=== PATIENT | female | born 1955 | race Caucasian/White ===

== ENCOUNTER 2016-04-04 09:54 | Day surgery (SDC) | payer OTHER, MEDICARE ==
[2016-04-01 15:24] VITALS: BMI 27.4
[~2016-04-04 09:54] MED LIST: LACTATED RINGERS 1,000 ML IV SCH; LIDOCAINE 1% 20 ML VIAL (10MG/ML) FOR IV START INTRADERMA PRN
[2016-04-04 10:10] VITALS: RESP 16; TEMP 97.2
[2016-04-04] MEDS ORDERED: LIDOCAINE 1% INJ 10MG/ML (20 ML MDV) ONE (10:28)
[2016-04-04] MEDS ORDERED: PROPOFOL 10 MG/ML 20 ML VIAL IV ONE (10:28)
--- NOTE | 2016-04-04 10:52 | P.PCN ---
Date of Procedure: 04/04/16 Procedure(s) Performed: Procedure: Total colonoscopy. Preoperative diagnosis: Screening for neoplasia, patient may be having surgery for rectal/bladder prolapse. Postoperative diagnosis: Diverticulosis with no obvious diverticulitis or neoplasia. Preparation: HalfLytely prep. Sedation: Was provided by anesthesia. Brief clinical history: The patient is a 60-year-old female who is referred for this evaluation to rule out neoplasia. She is being evaluated for possible surgical intervention for rectal/bladder prolapse. Procedure: With the patient on her left lateral decubitus position and after informed consent and adequate sedation, the perianal area was inspected and it did not show any fissures or fistulas. There were no masses felt on digital rectal examination. The Olympus CFQ 160L video colonoscope was then inserted in the rectum in the usual fashion and advanced to the cecum. There were multiple diverticular orifices seen scattered both on the left side and right side although there were more evident on the sigmoid. There was no evidence of acute diverticulitis or strictures. No polyps or tumors were seen. The mucosa appeared healthy. I retroflexed endoscope in the rectum before the endoscope was withdrawn. Low-grade internal hemorrhoids were noted but that did not note any bleeding or other obvious pathology. The patient tolerated the procedure well. Plan: The patient was reassured. Discussed dietary measures. She will follow- up with you as planned and further plans based on her course.
[2016-04-04 11:05] VITALS: BP 101/59; PULSE 77
== END 2016-04-04 11:24 | disposition home or self-care (01) ==
LOC: ORWHC2ENDO 09:54
DX: Z12.11 Encounter for screening for malignant neoplasm of colon (principal); K57.30 Diverticulosis of large intestine without perforation or abscess without bleeding; K64.8 Other hemorrhoids; F39 Unspecified mood [affective] disorder; Z79.899 Other long term (current) drug therapy
CPT/HCPCS: J2001; J2704; G0121; 99153

== ENCOUNTER → 2016-07-29 | Outpatient (CLI) | payer OTHER, MEDICARE ==
--- NOTE | 2016-07-31 06:46 | MM ---
Reason for exam: screening (asymptomatic). Last mammogram was performed 7 months ago. Physical Findings: A clinical breast exam by your physician is recommended on an annual basis and results should be correlated with mammographic findings. MG Screening Mammo w CAD Bilateral CC and MLO view(s) were taken. Prior study comparison: December 20, 2015, left breast MG 3d diag mammo w/cad LT. June 02, 2015, bilateral MG 3d diag mammo w/cad ERIN. There are scattered fibroglandular densities. No significant changes when compared with prior studies. ASSESSMENT: Benign, BI-RAD 2 RECOMMENDATION: Routine screening mammogram of both breasts in 1 year.
== END ==
LOC: RADMAMWWP 16:13
PROVIDERS: ATTEND Internal Medicine
DX: Z12.31 Encounter for screening mammogram for malignant neoplasm of breast (principal)

== ENCOUNTER 2016-09-24 13:31 | Observation (INO) | payer OTHER, MEDICARE ==
[2016-09-24] MEDS ORDERED: SODIUM CHLORIDE 0.9% 1,000 ML IV ONE ×2 (14:08→15:28)
--- NOTE | 2016-09-24 14:22 | ED ---
General Adult HPI - General Chief complaint: Dizziness Stated complaint: Fall. Dizziness Time Seen by Provider: 09/24/16 13:48 Source: patient Mode of arrival: ambulatory Limitations: no limitations - History of Present Illness Initial comments: Debbie is a 60-year-old female with past medical history most significant for chronic migraines for which she had an occipital nerve stimulator placed by a neurosurgeon some years ago. Debbie reports over the past couple of months she is developed a head twitching motion, and for the past 2 weeks is been having balance problems. Debbie reports that she saw her neurosurgeon 2 weeks ago and her nerve stimulator was thoroughly investigated, it was determined at that time that there was no malfunction of the stimulator. Patient reports that since that time she has had 2 falls. The first being approximately 9 days ago which she was getting onto her boat and fell forward striking her chin on the ground. Patient reports that she was alone and so she placed an ice pack on her chin and laid down for some time. She denies any loss of consciousness at that time. She believes this was a mechanical trip and fall. Patient reports that since that time she is progressively felt more unsteady on her feet. She reports feeling lightheaded and if she is moving at all times. She says the lightheadedness is worse upon standing and improves when she is laying down. Patient states that even when she is laying down occasionally she does feel as though her body is moving. She doesn't feel that the symptoms are exacerbated by head movement left or right. She does not feel as though the room is spinning around her. She has no history of vertigo. patient also reports that she was woke up during the middle of night with a new headache. She reports that she previously had severe migraines but has not experienced this in a number of years since having her simulator placed. She describes the headache as pressure-like in the occipital region of her head. She reports that this is similar to her previous migraines, however is the first headache she has had since having her stimulator placed. She has not identified any exacerbating or relieving factors for the migraine. She denies any vision change, ringing in ears, hearing loss. This is not the worse headache she has ever experienced. The headache was not most intense onset, it has continued to worsen throughout the day. Patient does state that she's been suffering from nausea for nearly a week and because of that has had decreased oral intake. patient denies any fevers, chills, vomiting, shortness of breath, chest pain or change in bowel or bladder habits. - Related Data Home Medications Medication Instructions Recorded Confirmed DULoxetine HCL [Cymbalta] 60 mg PO DAILY 04/01/16 09/24/16 Docusate [Colace] 100 - 200 mg PO DAILY PRN 04/01/16 09/24/16 L.acidoph,Paracasei, B.lactis 1 tab PO DAILY 04/01/16 09/24/16 [Probiotic] Multivitamins, Thera [Multivitamin] 1 tab PO DAILY 04/01/16 09/24/16 Folic Acid 0.4 mg PO DAILY 09/24/16 09/24/16 Magnesium Oxide [Mag-Ox] 250 mg PO DAILY 09/24/16 09/24/16 Turmeric Root Extract [Turmeric] 500 mg PO DAILY 09/24/16 09/24/16 Allergies Allergy/AdvReac Type Severity Reaction Status Date / Time No Known Allergies Allergy Verified 09/24/16 14:38 Review of Systems ROS Statement: Those systems with pertinent positive or pertinent negative responses have been documented in the HPI. ROS Other: All systems not noted in ROS Statement are negative. Constitutional: Denies: fever, chills, weakness Eyes: Denies: vision change ENT: Denies: hearing loss Respiratory: Denies: dyspnea Cardiovascular: Denies: chest pain, palpitations, dyspnea on exertion Endocrine: Denies: fatigue Gastrointestinal: Reports: nausea. Denies: abdominal pain, vomiting, diarrhea, constipation Genitourinary: Denies: urgency, dysuria, frequency Musculoskeletal: Denies: back pain Skin: Reports: change in color (Bruises on bilateral arms, chin and left hip secondary to multiple falls). Denies: rash Neurological: Reports: headache, paresthesias (Bilateral upper extremities for 2 weeks duration), abnormal gait. Denies: confusion Psychiatric: Denies: anxiety Hematological/Lymphatic: Denies: easy bleeding, easy bruising Past Medical History Past Medical History: Osteoarthritis (OA) Additional Past Medical History / Comment(s): RECTAL PROLAPSE, HX MIGRAINE, cervicogenic headache, celiacs disease History of Any Multi-Drug Resistant Organisms: None Reported Past Surgical History: Hysterectomy, Tubal Ligation Additional Past Surgical History / Comment(s): OCCIPITAL STUMULATOR IMPLANT, ( BATTERY PACK IS IN LEFT POSTERIOR HIP) colonoscopy, ERIN CATARACT SX Past Anesthesia/Blood Transfusion Reactions: No Reported Reaction Past Psychological History: No Psychological Hx Reported Smoking Status: Never smoker Past Alcohol Use History: Occasional Past Drug Use History: None Reported - Past Family History Mother Family Medical History: Deep Vein Thrombosis (DVT) Brother(s) Family Medical History: Cancer Sister(s) Family Medical History: Cancer General Exam Limitations: no limitations General appearance: alert, in no apparent distress Head exam: Present: normocephalic, other (Well-healed bruising on her chin) Eye exam: Present: PERRL ENT exam: Present: mucous membranes dry Neck exam: Present: full ROM. Absent: tenderness, lymphadenopathy Respiratory exam: Present: normal lung sounds bilaterally Cardiovascular Exam: Present: regular rate, normal rhythm, normal heart sounds GI/Abdominal exam: Present: soft, normal bowel sounds. Absent: distended, tenderness, guarding, rebound, rigid Rectal exam: Present: deferred Extremities exam: Present: normal inspection, full ROM, normal capillary refill. Absent: tenderness, pedal edema, joint swelling, calf tenderness Neurological exam: Present: alert, oriented X3, CN II-XII intact Expanded Neurological exam: Present: protecting the airway. Absent: inattentive, memory loss-remote event, memory loss-recent event, receptive aphasia, expressive aphasia, total aphasia Patient oriented to: Present: person, place, time Speech: Present: fluid speech Cranial nerves: EOM's Intact: Normal, Tongue Deviation: Normal, Nystagmus: Normal Cerebellar function: Finger to Nose: Normal, Heel to Mckeon: Normal Upper motor neuron: Pronator Drift: Normal Motor strength exam: RUE: 4, LUE: 4, RLE: 4, LLE: 4 Eye Response: (4) open spontaneously Motor Response: (6) obeys commands Verbal Response: (5) oriented Psychiatric exam: Present: normal affect, normal mood Skin exam: Present: warm, dry Course Vital Signs 09/24/16 09/24/16 13:39 15:37 Temperature 98.6 F Pulse Rate 74 60 Respiratory 20 16 Rate Blood Pressure 124/80 147/67 O2 Sat by Pulse 97 98 Oximetry - Reevaluation(s) Reevaluation #1: Reevaluated after 1 L fluid bolus. Patient reports that upon sitting from a laying position she developed a spinning sensation. Additional 1 L fluid bolus and meclizine were ordered. CT results were discussed with patient and family at bedside 09/24/16 15:29 Medical Decision Making - Medical Decision Making Patient was seen and examined, history is obtained from the patient and HER-2 daughters at bedside Patient appears to have a component of orthostatic hypotension with resulting lightheadedness. However there is concerned that she has had change in gait and some gait instability over the past 2 weeks in addition the patient has developed motor tic of her neck and head over the past 2 months for which she's been followed by neurosurgery without any definitive diagnosis. Labs, CT of the head and neck, EKG were ordered Patient appears dehydrated on physical exam, 1 L normal saline bolus was ordered Patient does not seem to have any component of vertigo, her symptoms are not exacerbated by turning the head left and right, she has no nystagmus. He don't feel at this time the meclizine would be of benefit. Patient reevaluated after 1 L fluid bolus, reports that she feels a spinning sensation upon sitting up. Meclizine an additional 1 L fluid bolus ordered Patient reevaluated after second liter bolus, no improvement in symptoms. Patient's daughter's assisted her ambulating to the restroom and patient reports she still felt very lightheaded and spinning. She did not feel steady on her feet and required a 2 person assist. Urgent care discussed with Dr. Hicks who accepts the patient admission for ataxia he requests a consult to neurology - Lab Data Result diagrams: 09/24/16 14:23 09/24/16 14:23 Lab Results 09/24/16 09/24/16 09/24/16 Range/Units 14:23 14:23 14:23 WBC 8.7 (3.8-10.6) k/uL RBC 4.55 (3.80-5.40) m/uL Hgb 14.4 (11.4-16.0) gm/dL Hct 41.4 (34.0-46.0) % MCV 90.9 (80.0-100.0) fL MCH 31.6 (25.0-35.0) pg MCHC 34.7 (31.0-37.0) g/dL RDW 14.1 (11.5-15.5) % Plt Count 316 (150-450) k/uL Neutrophils % 73 % Lymphocytes % 20 % Monocytes % 4 % Eosinophils % 2 % Basophils % 1 % Neutrophils # 6.3 (1.3-7.7) k/uL Lymphocytes # 1.7 (1.0-4.8) k/uL Monocytes # 0.3 (0-1.0) k/uL Eosinophils # 0.2 (0-0.7) k/uL Basophils # 0.1 (0-0.2) k/uL PT 10.1 (9.0-12.0) sec INR 1.0 (<1.1) APTT 23.5 (22.0-30.0) sec Sodium 139 (137-145) mmol/L Potassium 4.5 (3.5-5.1) mmol/L Chloride 105 (98-107) mmol/L Carbon Dioxide 26 (22-30) mmol/L Anion Gap 8 mmol/L BUN 22 H (7-17) mg/dL Creatinine 0.67 (0.52-1.04) mg/dL Est GFR (MDRD) Af Amer >60 (>60 ml/min/1.73 sqM) Est GFR (MDRD) Non-Af >60 (>60 ml/min/1.73 sqM) Glucose 94 (74-99) mg/dL Calcium 9.8 (8.4-10.2) mg/dL Disposition Clinical Impression: Ataxia Disposition: ADMITTED IP TO THIS [facility] Referrals: Francisca Hancock MD [Primary Care Provider] - 1-2 days
[2016-09-24 14:42] LABS: Basophils # (A) 0.1 k/uL (0-0.2); Basophils % (A) 1 %; CH 30.6; CHCM 33.8; Eosinophils # (A) 0.2 k/uL (0-0.7); Eosinophils % (A) 2 %; HCT 41.4 % (34.0-46.0); HDW 2.35; HGB 14.4 gm/dL (11.4-16.0); Luc # (Auto) 0.16; Luc % (Auto) 2; Lymphocytes # (A) 1.7 k/uL (1.0-4.8); Lymphocytes % (A) 20 %; MCH 31.6 pg (25.0-35.0); MCHC 34.7 g/dL (31.0-37.0); MCV 90.9 fL (80.0-100.0); Mean Platelet Volume 7.5; Monocytes # (A) 0.3 k/uL (0-1.0); Monocytes % (A) 4 %; Neutrophils # (A) 6.3 k/uL (1.3-7.7); Neutrophils % (A) 73 %; RBC 4.55 m/uL (3.80-5.40); RDW 14.1 % (11.5-15.5); WBC 8.7 k/uL (3.8-10.6); WBC (Perox) 8.04
[2016-09-24 14:52] LABS: Anion Gap 8 mmol/L; Blood Urea Nitrogen 22 mg/dL (7-17); Calcium 9.8 mg/dL (8.4-10.2); Carbon Dioxide 26 mmol/L (22-30); Chloride 105 mmol/L (98-107); Glucose 94 mg/dL (74-99); Non-African American GFR(MDRD) >60 (>60 ml/min/1.73 sqM); Potassium 4.5 mmol/L (3.5-5.1); Sodium 139 mmol/L (137-145)
--- NOTE | 2016-09-24 15:17 | CT ---
EXAMINATION TYPE: CT brain slava wo con DATE OF EXAM: 09/24/2016 COMPARISON: Prior CT brain 09/29/2014 HISTORY: Dizziness with fall injuries. CT DLP: 1339.7 mGycm Automated exposure control for dose reduction was used. TECHNIQUE: CT scan of the head and cervical spine are performed without contrast. FINDINGS: There is no acute intracranial hemorrhage, mass effect, or midline shift identified. The ventricles and sulci are within normal limits in size. Interval introduction of posterior leads at t he skull base on the left and right causes some streak artifact. The globes are intact and the visual ized sinuses are clear. Cervical spine is visualized in its entirety from C1 through upper thoracic levels and demonstrates s atisfactory alignment without evidence of acute fracture or dislocation. Prevertebral soft tissue ap pears within normal limits. Multilevel facet arthropathy changes are present. Spondylosis is present most notably at C5-6 with associated loss of disc height, minimal anterolisthesis grade 1 C4-5. Fora alf encroachment present at C5-6 bilaterally left greater than right and also C4-5, on the left at C3-4 The C1-C2 articulation is unremarkable. IMPRESSION: 1. There is no acute fracture or dislocation evident in the cervical spine. Degenerative disc disease , multilevel foraminal encroachment. 2. No acute intracranial hemorrhage, mass effect, or midline shift is seen.
[2016-09-24] MEDS ORDERED: MECLIZINE 12.5 MG TAB PO STA (15:28)
[2016-09-24 15:36] LABS: Partial Thromboplastin Time 23.5 sec (22.0-30.0); Prothrombin Time 10.1 sec (9.0-12.0)
[2016-09-24] MEDS ORDERED: ONDANSETRON 4 MG/2 ML VIAL IVP STA (15:46)
[2016-09-24] MEDS ORDERED: NALOXONE 0.4 MG/ML 1 ML VIAL IV PRN (16:34)
[2016-09-24] MEDS ORDERED: ACETAMINOPHEN TAB 500 MG TAB PO PRN (19:06)
[2016-09-24] MEDS ORDERED: DOCUSATE 100 MG CAP PO PRN (19:55)
[2016-09-24] MEDS: NAPROXEN 250 MG TAB PO SCH (21:31)
[2016-09-24] MEDS: MELATONIN 3 MG TABLET PO SCH (21:33)
[2016-09-25] MEDS: NAPROXEN 250 MG TAB PO SCH ×2 (04:41→21:00)
[2016-09-25] MEDS: FOLIC ACID 1 MG TAB PO SCH (08:55)
[2016-09-25] MEDS: DULoxetine HCL 60 MG CAPSULE.DR PO SCH (08:55)
[2016-09-25] MEDS: MAGNESIUM OXIDE 400 MG TAB PO SCH (08:56)
[2016-09-25] MEDS: LACTOBACILLUS ACIDOPH & BULGAR 1 EACH PACKET PO SCH (08:56)
[2016-09-25] MEDS ORDERED: ONDANSETRON 4 MG/2 ML VIAL IVP PRN (13:00)
--- NOTE | 2016-09-25 13:16 | CONS ---
DATE OF CONSULTATION: 09/24/2016 CHIEF COMPLAINT: Dizziness. HISTORY OF PRESENT ILLNESS: The patient is a pleasant 60-year-old female who is being evaluated by the neurology service per the request of Dr. Hicks for dizziness. The patient states that over the past several days, she has been feeling dizzy and she describes the dizziness as a light-headed sensation and also has feeling of motion. She denies any spinning sensation. She does report ringing in her ears, but this has been present for approximately 8 years. She denies any current hearing loss, but states that she has a strong family history of tinnitus and hearing loss. She does report a recent injury approximately 9 days ago. She states that she was getting on her boat and lost balance and fell forward hitting her chin on the boat. She still has some superficial abrasions on her left chin area from that fall. She did not have any loss of consciousness. Regarding her disequilibrium and dizziness, she states that this comes and goes. She is complaining of a headache , but she has a history of chronic migraines. She does have peripheral nerve stimulator implantation in the posterior head region, which was implanted last year. She reports that this was recently evaluated and was found to be functioning properly. She rates her headache at this time at 5 out of [address] scan of the brain was done, which showed no acute intracranial abnormalities. Her CBC and basic metabolic profile were normal. Orthostatics were done when she arrived to the observation unit and it showed on orthostatic hypotension, but she did have mild bradycardia at one point with a pulse of 56 beats per minute. PAST MEDICAL HISTORY: Chronic migraines, arthritis, history of tubal ligation, hysterectomy, peripheral nerve stimulator implantation, cataract surgeries. FAMILY HISTORY: Positive for cancer, deep venous thrombosis and hearing loss. SOCIAL HISTORY: She occasionally drinks alcohol. She denies any tobacco or drug use. REVIEW OF SYSTEMS: CONSTITUTIONAL: Negative. EYES: Negative. ENT: As mentioned above. CARDIOVASCULAR: Negative. RESPIRATORY: Negative. NEUROLOGICAL: As mentioned above. She denies any lateralizing numbness or weakness. GASTROINTESTINAL: Negative. GENITOURINARY: Negative. MUSCULOSKELETAL: Negative. DERMATOLOGICAL: Negative. ENDOCRINE: Negative. PSYCHIATRIC: Negative. PHYSICAL EXAM : Vital signs show a temperature of 97.7, pulse 64, respirations 14, blood pressure 132/71. GENERAL APPEARANCE: The patient is a well-developed, female who appears to be in no acute acute distress. HEENT: Healing superficial abrasions are seen in the left chin area. Extraocular muscles are intact. No nystagmus is noticed. No facial asymmetry is seen. Neck is supple with no masses felt. CARDIOVASCULAR: Regular rate and rhythm. ABDOMEN: Nontender, nondistended. Extremities showed no edema or clubbing. NEUROLOGICAL EXAM: The patient is alert, awake and oriented x3. Speech and language are normal. Strength is full in all 4 extremities. Sensory exam was normal to light touch in all 4 extremities. No facial asymmetry is noticed on cranial nerve testing. No pronator drift is seen. No tremors are noticed. Mbroqj-okgo-opgfel testing showed no dysmetria. IMPRESSION: 1. Recurrent dizziness. 2. Recurrent gait instability. 3. Recent fall. 4. Chronic headache. RECOMMENDATION: The patient continues to have recurrent episode of disequilibrium and dizziness. She does have some light-headed sensation along with some motion sensation without any true vertigo or nausea. She does complain of chronic tinnitus. Given this and given her extensive family history of tinnitus and hearing loss, I will consult ENT for further evaluation. I also recommend a cardiac evaluation to check for evidence of dysautonomia. She may benefit from having further workup like a tilt table test. An EEG has been ordered. I did review her CT scan to the brain, which showed no acute intracranial abnormalities. Her cerebellar function test was normal and I doubt any ischemic etiology for her symptoms. Continue neuro checks. I will continue to follow with you. Further recommendations to follow. Thank you for allowing me to participate in the care of your patient. If you have any questions, please feel free to contact me. JORDYN
[2016-09-25] MEDS: HYDROcodone/APAP 5-325MG 1 EACH TAB PO PRN (13:59)
[2016-09-25] MEDS: MULTIVITAMINS, THERA 1 EACH TAB PO SCH (14:58)
--- NOTE | 2016-09-25 15:55 | P.HPIM ---
History of Present Illness 60-year-old female is admitted for fall. I did get extensive history from the patient. Patient to have 3 mechanical falls from extensive history. But daughter is still concerned that patient is not providing appropriate history. Although patient did not have any syncopal episode was complaining of lightheadedness denied in no vertiginous symptoms. Patient EKG is essentially within normal limits. HEENT had a CT of the head and neck does have history of chronic migraines and does have a occipital nerve stimulator. Patient lightheadedness proved today. She was referred to neurology. Patient denied any weakness and patient does not have any weakness on your exam doesn't have any sensory deficits. Patient denied any fever, chills or dysuria, nausea, vomiting, diarrhea. Patient's family is concerned about her memory difficulties for which she I'm opting Mini-Mental Status exam. Dr. Rivera from cardiology recommended tilt table testing, patient is awaiting this testing. Telemetry normal. Review of Systems REVIEW OF SYSTEMS: CONSTITUTIONAL: No fever, no malaise, no fatigue. HEENT: No recent visual problems or hearing problems. Denied any sore throat. CARDIOVASCULAR: No chest pain, orthopnea, PND, no palpitations, no syncope. PULMONARY: No shortness of breath, no cough, no hemoptysis. GASTROINTESTINAL: No diarrhea, no nausea, no vomiting, no abdominal pain. Normoactive bowel sounds. NEUROLOGICAL: No headaches, no weakness, no numbness. HEMATOLOGICAL: Denies any bleeding or petechiae. GENITOURINARY: Denies any burning micturition, frequency, or urgency. MUSCULOSKELETAL/RHEUMATOLOGICAL: Denies any joint pain, swelling, or any muscle pain. ENDOCRINE: Denies any polyuria or polydipsia. The rest of the 14-point review of systems is negative. Past Medical History Past Medical History: Osteoarthritis (OA) Additional Past Medical History / Comment(s): RECTAL PROLAPSE, HX MIGRAINE, cervicogenic headache, celiacs disease(gluten free diet), "ddd upper spine"oa spine.diverticulosis. 2 falls in past 10 days.in june was at [facility] for c/p-stress test neg History of Any Multi-Drug Resistant Organisms: None Reported Past Surgical History: Hysterectomy, Tubal Ligation Additional Past Surgical History / Comment(s): OCCIPITAL STUMULATOR IMPLANT, ( BATTERY PACK IS IN LEFT POSTERIOR HIP) colonoscopy, ERIN CATARACT SX Past Anesthesia/Blood Transfusion Reactions: No Reported Reaction Smoking Status: Never smoker - Past Family History Mother Family Medical History: Deep Vein Thrombosis (DVT) Brother(s) Family Medical History: Cancer Sister(s) Family Medical History: Cancer Medications and Allergies Home Medications Medication Instructions Recorded Confirmed Type DULoxetine HCL [Cymbalta] 60 mg PO DAILY 04/01/16 09/24/16 History Docusate [Colace] 100 - 200 mg PO DAILY PRN 04/01/16 09/24/16 History L.acidoph,Paracasei, B.lactis 1 tab PO DAILY 04/01/16 09/24/16 History [Probiotic] Multivitamins, Thera [Multivitamin] 1 tab PO DAILY 04/01/16 09/24/16 History Folic Acid 0.4 mg PO DAILY 09/24/16 09/24/16 History Magnesium Oxide [Mag-Ox] 250 mg PO DAILY 09/24/16 09/24/16 History Turmeric Root Extract [Turmeric] 500 mg PO DAILY 09/24/16 09/24/16 History Allergies Allergy/AdvReac Type Severity Reaction Status Date / Time No Known Allergies Allergy Verified 09/24/16 14:38 Physical Exam Vitals: Vital Signs Temp Pulse Pulse Pulse Pulse Pulse Resp 09/25/16 11:33 97.8 F 70 17 09/25/16 07:43 97.7 F 69 17 09/25/16 04:00 97.9 F 75 18 09/25/16 03:36 18 09/25/16 00:00 68 18 09/24/16 23:31 97.9 F 68 18 09/24/16 20:00 80 18 09/24/16 19:27 97.9 F 80 18 09/24/16 17:31 97.7 F 64 14 09/24/16 17:10 97.0 F L 56 L 16 09/24/16 17:04 97.2 F L 16 09/24/16 17:01 63 69 63 BP BP BP BP BP Pulse Ox 09/25/16 11:33 119/66 95 09/25/16 07:43 117/51 96 09/25/16 04:00 118/71 97 09/25/16 03:36 09/25/16 00:00 09/24/16 23:31 106/63 96 09/24/16 20:00 09/24/16 19:27 129/76 98 09/24/16 17:31 132/71 97 09/24/16 17:10 152/87 97 09/24/16 17:04 09/24/16 17:01 154/82 152/87 144/70 Intake and Output 09/25/16 09/25/16 09/25/16 06:59 14:59 22:59 Intake Total 250 440 Balance 250 440 Intake: Oral 250 440 Other: Voiding Method Toilet # Voids 2 PHYSICAL EXAMINATION: GENERAL: The patient is alert and oriented x3, not in any acute distress. Well developed, well nourished. HEENT: Pupils are round and equally reacting to light. EOMI. No scleral icterus. No conjunctival pallor. Normocephalic, atraumatic. No pharyngeal erythema. No thyromegaly. CARDIOVASCULAR: S1 and S2 present. No murmurs, rubs, or gallops. PULMONARY: Chest is clear to auscultation, no wheezing or crackles. ABDOMEN: Soft, nontender, nondistended, normoactive bowel sounds. No palpable organomegaly. MUSCULOSKELETAL: No joint swelling or deformity. EXTREMITIES: No cyanosis, clubbing, or pedal edema. NEUROLOGICAL: Gross neurological examination did not reveal any focal deficits. SKIN: No rashes. Results CBC & Chem 7: 09/24/16 14:23 09/24/16 14:23 Thrombosis Risk Factor Assmnt - Choose All That Apply Any of the Below Risk Factors Present?: Yes Each Factor Represents 1 point: Obesity (BMI >25) Other Risk Factors: Yes Each Risk Factor Represents 2 Points: Age 61-74 years Each Risk Factor Represents 3 Points: Family history of DVT/PE Other congenital or acquired thrombophilia - If yes, enter type in comment: No Thrombosis Risk Factor Assessment Total Risk Factor Score: 6 Thrombosis Risk Factor Assessment Level: High Risk Assessment and Plan Plan: #1 fall: It appears to be mechanical fall and related to her memory difficulties. Will do Mini-Mental status exam patient's as have significant family history of falls and Alzheimer dementia. Evaluated the patient 2 dizziness: Probably related to mild dehydration patient received IV fluids. Patient is going for tilt table testing although my suspicion is significantly low for autonomic dysfunction. #3 chronic degenerative cervical disc disease for which patient has occipital nerve stimulator. Patient is nonsteroidal anti-inflammatory medications for pain. She is requesting Glenvil #4 migraine: Management as per neurology
[2016-09-25] MEDS ORDERED: CALCIUM CARBONATE 500 MG CHEWABLE PO PRN (16:23)
[2016-09-25] MEDS: MELATONIN 3 MG TABLET PO SCH (20:08)
[2016-09-25] MEDS: MECLIZINE 12.5 MG TAB PO SCH (20:09)
--- NOTE | 2016-09-25 21:34 | P.PN ---
Subjective Principal diagnosis: Dizziness Patient is a 60-year-old female being followed by neurology for dizziness. Patient describes dizziness as lightheaded and also feeling of motion. Denies any spinning sensation, does report ringing in her ears but this is present for approximately 8 years. Denies any current hearing loss but states that she has a strong family history of tinnitus and hearing loss. Does report a recent injury approximately 9 days ago. Patient had a fall while attempting to enter a boat, lost her balance and hit her chin on the boat. Patient does have some superficial facial abrasions in various stages of healing. Patient did not have any loss of consciousness. Disequilibrium and dizziness wax and wane at varying intervals. Patient was complaining of a headache and has a history of chronic migraine. Patient does have a peripheral nerve stimulator implantation in the posterior head which was implanted last year by another provider/group. Stimulator was recently interrogated per the patient and was found to be functioning properly. Patient rates the pain at a 5 out of [address] of the brain was done which noted no acute intracranial abnormalities. CBC, BMP were normal. Orthostatics were completed on arrival and during observation in the unit which showed no orthostatic hypotension but noted mild bradycardia at one point with a pulse of 56 bpm. On contact, the patient was supine in bed with family at the bedside. Patient was alert and oriented 3, no acute distress. Objective - Vital Signs Vital signs: Vital Signs Temp 97.5 F L 09/25/16 21:15 Pulse 83 09/25/16 21:15 Resp 16 09/25/16 21:15 BP 132/65 09/25/16 21:15 Pulse Ox 95 09/25/16 21:15 Intake & Output 09/25/16 09/25/16 09/26/16 06:59 18:59 06:59 Intake Total 450 440 Balance 450 440 Weight 79.7 kg Intake: Oral 450 440 Other: Voiding Method Toilet Toilet # Voids 2 2 - Exam Constitutional: AOx3, cooperative HEENT: NC/AT, no facial asymmetry is seen. Throat: Supple, no masses Respiratory: No increased work of breathing Cardiac: Regular rate and Rhythm GI: non tender, non distended Musculoskeletal: Sport Psychologist strengths are equal bilaterally 5/5, Lower extremity strengths are equal bilaterally at 5/5. Neurological: CN II-XII in tact, patient was AOx3, speech and language are normal, no unilateralizing weakness, no seizure activity note on physical exam. Sensation was normal. Integementary: no rash, no erythema Psychiatric: mood and affect appropriate - Labs CBC & Chem 7: 09/24/16 14:23 09/24/16 14:23 Assessment and Plan (1) Dizziness Status: Acute (2) History of fall within past 90 days Status: Acute (3) Chronic headaches Status: Acute (4) Ataxia Status: Acute (5) Memory loss Status: Acute Plan: Patient continues to have recurrent episodes of disequilibrium and dizziness. Patient also has some intermittent lightheaded sensation with vertigo/motion sensation without any true vertigo or hearing loss. ENT has been consult in and states they will evaluate the patient outpatient. Cardiology is actively on the case. Tilt table has been ordered to cardiology. EEG has been taken but not read. CT of the brain noted no acute intracranial abnormalities. Cerebellar function testing was normal. Ischemic etiology is doubtful at this point. Nursing did report that the patient did respond positively to Antivert 25 mg given within the last 24 hours. Medication lasted approximately 16 hours. I am going to prescribe Antivert 12.5 mg, 1 tab, by mouth twice a day to attempt to decrease the patient's motion/vertigo-like complaints. Medication can be continued outpatient as well. As relates to the patient's memory loss/memory difficulties, further diagnostic workup can be conducted outpatient. Status: Patient is cleared for discharge from a neurological standpoint. Patient to follow up in our office within 14 days I discussed the patient's pertinent medical information with Dr. Bruce. He agrees with the plan of care as implemented.
--- NOTE | 2016-09-26 07:28 | EEG ---
DATE OF SERVICE: 09/25/2016 REASON FOR TESTING: Dizziness. DESCRIPTION OF THE PROCEDURE: This EEG was performed using a 21 channel digital electroencephalograph following international 10 - 20 system. DESCRIPTION OF THE RECORDING: From the beginning of the tracing, and with the patient's eyes closed, the background rhythm was mostly consisting of 9 to 10 Hz alpha frequency in the posterior occipital leads. No obvious asymmetry is seen. Photic stimulation was performed with a good driving response seen. No pathological waves were elicited. Hyperventilation was not performed. The patient remains awake throughout the tracing. Rare movement artifacts are seen. No epileptiform discharges were noticed. Her EKG leads showed a regular rate and rhythm. INTERPRETATION: This awake EEG can be considered within normal limits. There was no asymmetry seen. No epileptiform discharges were noticed. The absence of epileptiform discharges does not rule out the diagnosis of epilepsy, therefore, clinical correlation is recommended. MTDD
--- NOTE | 2016-09-26 10:48 | ECHOF ---
Referral Reason:dizziness MEASUREMENTS -------- HEIGHT: 165.1 cm WEIGHT: 79.4 kg BP: 119/66 RVIDd: 3.3 cm (< 3.3) IVSd: 0.9 cm (0.6 - 1.1) LVIDd: 4.6 cm (3.9 - 5.3) LVPWd: 1.0 cm (0.6 - 1.1) IVSs: 1.4 cm LVIDs: 3.3 cm LVPWs: 1.4 cm LA Diam: 3.7 cm (2.7 - 3.8) LAESV Index (A-L): 17.83 ml/m Ao Diam: 2.9 cm (2.0 - 3.7) AV Cusp: 2.2 cm (1.5 - 2.6) MV EXCURSION: 19.132 mm (> 18.000) MV EF SLOPE: 136 mm/s (70 - 150) EPSS: 0.6 cm MV E Eric: 0.79 m/s MV DecT: 179 ms MV A Eric: 0.74 m/s MV E/A Ratio: 1.07 FINDINGS -------- Sinus rhythm. This was a technically good study. The left ventricular size is normal. Left ventricular wall thickness is normal. Overall left ventricular systolic function is normal with, an EF between 55 - 60 %. The right ventricle is normal in size. Normal LA size by volume 22+/-6 ml/m2. The right atrium is normal in size. The aortic valve is trileaflet and appears structurally normal. The mitral valve is normal. There is trace mitral regurgitation. The tricuspid valve appears structurally normal. There is no pulmonic regurgitation present. The aortic root size is normal. Normal inferior vena cava with normal inspiratory collapse consistent with estimated right atrial pressure of 5 mmHg. There is no pericardial effusion. CONCLUSIONS -------- 1. Sinus rhythm. 2. There is no pulmonic regurgitation present. 3. The aortic root size is normal. 4. Normal inferior vena cava with normal inspiratory collapse consistent with estimated right atrial pressure of 5 mmHg. 5. There is no pericardial effusion. 6. This was a technically good study. 7. Left ventricular wall thickness is normal. 8. Overall left ventricular systolic function is normal with, an EF between 55 - 60 %. 9. Normal LA size by volume 22+/-6 ml/m2. 10. The aortic valve is trileaflet and appears structurally normal. 11. The mitral valve is normal. 12. There is trace mitral regurgitation. 13. The tricuspid valve appears structurally normal. EDI SPECIALIST: Milka Barrios RDCS
[2016-09-26] MEDS ORDERED: DIAZEPAM 5 MG TAB PO PRN (11:51)
[2016-09-26] MEDS ORDERED: SODIUM CHLORIDE 0.9% 500 ML IV ONE (13:02)
[2016-09-26] MEDS: LACTOBACILLUS ACIDOPH & BULGAR 1 EACH PACKET PO SCH (14:55)
[2016-09-26] MEDS: DULoxetine HCL 60 MG CAPSULE.DR PO SCH (14:55)
[2016-09-26] MEDS: MAGNESIUM OXIDE 400 MG TAB PO SCH (14:55)
[2016-09-26] MEDS: MECLIZINE 12.5 MG TAB PO SCH ×2 (14:55→20:36)
[2016-09-26] MEDS: MULTIVITAMINS, THERA 1 EACH TAB PO SCH (14:55)
[2016-09-26] MEDS: HYDROcodone/APAP 5-325MG 1 EACH TAB PO PRN ×2 (14:56→19:08)
[2016-09-26] MEDS: FOLIC ACID 1 MG TAB PO SCH (14:56)
[2016-09-26] MEDS: NAPROXEN 250 MG TAB PO SCH ×2 (15:17→20:35)
--- NOTE | 2016-09-26 15:46 | P.PCN ---
Preoperative Diagnosis: Twelve-lead ECG was reviewed and shows sinus rhythm normal CA narrow QRS normal QT interval Tilt table test Baseline blood pressure 128/66. His Baseline heart rate 68 beats a minute Patient was tilted upright at an angle of 70 per protocol Normal heart rate and blood pressure response to upright tilting without any symptoms Impression No evidence for syncope No evidence for neurocardiogenic syncope no evidence for dysautonomia or postural tachycardia syndrome/orthostatic intolerance Postoperative Diagnosis: Procedure(s) Performed: Implants: Indications for Procedure: Operative Findings: Description of Procedure:
--- NOTE | 2016-09-26 16:48 | P.PN ---
Subjective 60-year-old female is admitted for fall. I did get extensive history from the patient. Patient to have 3 mechanical falls from extensive history. But daughter is still concerned that patient is not providing appropriate history. Although patient did not have any syncopal episode was complaining of lightheadedness denied in no vertiginous symptoms. Patient EKG is essentially within normal limits. HEENT had a CT of the head and neck does have history of chronic migraines and does have a occipital nerve stimulator. Patient lightheadedness proved today. She was referred to neurology. Patient denied any weakness and patient does not have any weakness on your exam doesn't have any sensory deficits. Patient denied any fever, chills or dysuria, nausea, vomiting, diarrhea. Patient's family is concerned about her memory difficulties for which she I'm opting Mini-Mental Status exam. Dr. Rivera from cardiology recommended tilt table testing, patient is awaiting this testing. Telemetry normal. 09/26/2016 I have taken over care today as patient had some disagreements with the previous physician A brief history is that patient has had 2 falls prior to the onset of her symptoms 4 days ago. The 2 falls appear to be mechanical Thereafter 4 days ago patient noticed significant dizziness feels that the room is spinning around her states that is persistent however is worsened with any movement of her head Has not had any relief with meclizine However exacerbating factors appear to be movement of her head Patient was seen by our cardiology physician and has recommended tilt table test which was negative At this time patient denies having any other focal deficits including weakness, change in vision urinary incontinence or diarrhea According to the family member was at bedside states that patient apparently has been having some forgetfulness of recent information the last few months Objective - Vital Signs Vital signs: Vital Signs Temp 97.6 F 09/26/16 16:00 Pulse 94 09/26/16 16:00 Resp 18 09/26/16 16:00 BP 121/72 09/26/16 16:00 Pulse Ox 94 L 09/26/16 16:00 Intake & Output 09/25/16 09/26/16 09/26/16 18:59 06:59 18:59 Intake Total 440 200 Balance 440 200 Weight 79.7 kg Intake: IV 200 Oral 440 Other: Voiding Method Toilet Toilet # Voids 2 - Exam Physical exam Gen. appearance oriented 3 in no distress Neck is supple no JVD Lungs good air entry clear to auscultation no rhonchi or wheezing Heart S1-S2 heard regular rate and rhythm no murmurs appreciated Abdomen is soft nontender no organomegaly bowel sounds are intact Neurologically cranial nerves II-12 grossly intact no focal motor or sensory deficits noted Muscle strength is 5 out of 5 in all 4 extremities however patient does have significant reproducible vertigo with no associated nystagmus on Bennie-Hallpike maneuver States that she does have persistent vertigo last 4 days which is worsened with any movement Skin no abnormalities appreciated - Labs CBC & Chem 7: 09/24/16 14:23 09/24/16 14:23 Assessment and Plan Plan: Vertigo appears to be peripheral however a central cause cannot be ruled out as patient does have persistent vertigo her story does appear to be confusing and is not consistent patient apparently has stated to the previous physician and to the neurology PA that she does not have persistent vertigo. However today states that there was no relief for the last 4 days Peripheral neuropathy Memory impairment Chronic migraines status post a spinal device placement Plan Patient also has had 2 mechanical falls prior to the onset of her symptoms of dizziness We'll have PT/OT evaluate her for safety issues and could likely be discharged home depending on the tools she would require to to live safely Discussed patient should not drive at this time At any point there was no loss of consciousness MRI cannot be done as patient has chronic migraines with a device placed in her spine hence to prevent another stroke in case this is a central cause of vertigo patient be started on aspirin and atorvastatin 20 mg as was discussed with the patient and the family member were agreed with above assessment Patient will also be started on Valium in addition to meclizine in order to michael her symptoms of persistent dizziness patient could likely be discharged in the next 24 hours
[2016-09-26] MEDS: ASPIRIN 81 MG CHEW PO SCH (18:05)
[2016-09-26 19:43] VITALS: RESP 16
[2016-09-26] MEDS: MELATONIN 3 MG TABLET PO SCH (20:35)
[2016-09-27] MEDS: MECLIZINE 12.5 MG TAB PO SCH (08:44)
[2016-09-27] MEDS: NAPROXEN 250 MG TAB PO SCH (08:44)
[2016-09-27] MEDS: LACTOBACILLUS ACIDOPH & BULGAR 1 EACH PACKET PO SCH (08:44)
[2016-09-27] MEDS: ASPIRIN 81 MG CHEW PO SCH (08:45)
[2016-09-27] MEDS: DULoxetine HCL 60 MG CAPSULE.DR PO SCH (08:45)
[2016-09-27] MEDS: MAGNESIUM OXIDE 400 MG TAB PO SCH (08:45)
[2016-09-27] MEDS: FOLIC ACID 1 MG TAB PO SCH (08:45)
[2016-09-27] MEDS ORDERED: ATORVASTATIN 20 MG TAB PO SCH (09:00)
[2016-09-27] MEDS: MULTIVITAMINS, THERA 1 EACH TAB PO SCH (12:33)
[2016-09-27 15:35] VITALS: BP 128/79; PULSE 96; TEMP 98
--- NOTE | 2016-09-28 09:26 | DS ---
Consultation: Cardiology consultation and neurology consultation. Testing Procedures: Tilt table test. DISCHARGE DIAGNOSES: 1. Vertigo likely peripheral, central cause cannot be ruled out at this time, MRI could not be done due to the patient have nerve stimulator/spinal divide placement for chronic migraine headaches. 2. Peripheral neuropathy, nondiabetic. 3. Memory impairment. 4. Chronic migraine headaches status post spinal device placement. HOSPITAL COURSE: Ms. Govea is a 60 year old female with known history of chronic migraine headaches and spinal device placement a few years ago, came to the hospital with complaints of falls. The patient did have three mechanical falls at home. The patient has been complaining of dizziness since admission which is mainly positional. Whenever she gets up and moves her head, the patient does have increased dizziness which is intermittent. Dizziness thought to be most likely secondary to vertigo. The patient also having dizziness along with dysequilibrium most likely peripheral origin. The patient was seen by neurology and cardiology. The patient had extensive workup done including CT head and EEG within normal limits. The patient had tilt table test which was negative as well. 2D echo showed normal ejection fraction. No valvular abnormality has been noted. EKG showed normal limits. The patient was seen by neurology and due to dysequilibrium and dizziness, ENT has been consulted and ENT will follow up as an outpatient. Currently the patient denied any complaints of fever or chills. No nausea, vomiting or abdominal pain. Tolerating po diet. The patient is also concerned about her memory difficulties. Otherwise, the patient is currently alert and oriented times three. The patient was started on aspirin and Atorvastatin for stroke prophylaxis. The patient does not want to take Atorvastatin and saying that last lipid panel about a couple of months back which was within normal limits. Otherwise the patient was started on Meclizine while in the hospital which will be continued as needed for dizziness at home. The patient was seen by PT/OT and recommended discharge to home with home PT and the family said that they are able to take care of her 07/10. I did have a detailed discussion with the family and with her daughter as well. The patient does not want to go to rehab at this time. Otherwise, the patient will be discharged home under family support and recommended to follow up with ENT in the next one or two days with Dr. Trujillo. MRI could not be done due to spinal device in place. The patient otherwise wants to be discharged home. Discharge physical examination: 60 year old female the patient slightly improved symptomatically with Meclizine but still having dizziness especially when she moves her head or getting up from the bed. 60 year old female lying in the bed, awake, alert and oriented times three. Appears to be in no apparent distress. Vital signs: Blood pressure 128/79. Pulse 96. Respirations 16. Temperature afebrile. Pulse ox 96% on room air. HEENT: Atraumatic. Normocephalic. Neck is supple. No JVD. CVS: S1, S2 heard. No murmurs. No gallops, No rub. Lungs bilateral air entry is present. No wheezing. No crackles. Nonlabored breathing. Abdomen is soft, nontender. Bowel sounds are present. EXECUTIVE CHAIRMAN: Awake, alert and oriented times three. No focal deficits. Extremities: No edema. Pulses palpable bilaterally. No clubbing or cyanosis. Psychiatric: Cooperative. Laboratory data reviewed. Discharge physical examination done. DISCHARGE MEDICATIONS: 1. Cymbalta 60 mg daily. 2. Docusate 100 mg po b.i.d. prn for constipation. 3. Lactobacillus one tablet po daily. 4. Multivitamins one tablet po daily. 5. Folic acid 0.4 mg po daily. 6. Magnesium oxide 250 mg po daily. 7. Tumeric root 500 mg po daily. 8. Aspirin 81 mg po daily. 9. Meclizine 12.5 mg po b.i.d .prn for dizziness and vertigo. The patient will be discharged home with family support and activity as tolerated. Heart healthy and regular diet. Follow up with Dr. Trujillo. Follow with Dr. Bruce in two weeks. Follow with Dr. Francisca Hancock in one or two days. Home with self care and family support. Activity as tolerated. Fall precautions at home. MTDD
== END 2016-09-27 15:32 | disposition home or self-care (01) ==
LOC: EC 13:31 → 3OBS 16:34
PROVIDERS: ADMIT Hospitalist; ATTEND Hospitalist
DX: R42 Dizziness and giddiness (principal); G62.9 Polyneuropathy, unspecified; G43.909 Migraine, unspecified, not intractable, without status migrainosus; Z79.899 Other long term (current) drug therapy; M19.90 Unspecified osteoarthritis, unspecified site; Z82.0 Family history of epilepsy and other diseases of the nervous system; M50.30 Other cervical disc degeneration, unspecified cervical region; R41.3 Other amnesia; Z91.81 History of falling; Z96.89 Presence of other specified functional implants
CPT/HCPCS: 96361 ×3; 96376; 96374; 99285; 36415; 95819; 93005; 93306; 97161; 93660; 80048; 85025; 85610; 85730; 72125; 70450; G0378 ×4; J2405 ×2

== ENCOUNTER → 2017-03-28 | Outpatient (CLI) | payer BC, MEDICARE ==
--- NOTE | 2017-03-28 07:55 | US ---
EXAMINATION TYPE: US abdomen complete DATE OF EXAM: 03/28/2017 COMPARISON: NONE CLINICAL HISTORY: R10.11 Right Upper Quadrant pain. RUQ pain x 1 month EXAM MEASUREMENTS: Liver Length: 13.0 cm Gallbladder Wall: 0.2 cm CBD: 0.4 cm Spleen: 9.7 cm Right Kidney: 10.3 x 4.2 x 5.3cm Left Kidney: 11.1 x 3.7 x 5.4cm overlying bowel gas limits exam as well as high placement of liver intercostally Pancreas: limited views appears wnl Liver: difficult to image due to high location within ribcage, heterogenous echotexture with poor vi sualization of the portal triads. This finding limits evaluation for underlying hepatic masses and is most commonly related to hepatic steatosis. Gallbladder: wnl Evidence for sonographic Morrison's sign: no CBD: wnl Spleen: limited views appear wnl Right Kidney: wnl Left Kidney: wnl Upper IVC: wnl Abd Aorta: wnl The intrahepatic portion of the IVC and proximal abdominal aorta are within normal limits. There is no evidence of cholelithiasis. Common bile duct is unremarkable. The visualized portions of the mcmanus creas are homogenous. The spleen is unremarkable. Kidneys are symmetric and free of hydronephrosis. No renal lesions are seen. IMPRESSION: 1. Heterogenous and hyperechoic hepatic echotexture, most commonly related to underlying hepatic stea tosis. 2. No sonographic evidence of cholelithiasis or acute cholecystitis.
== END | disposition home or self-care (01) ==
LOC: RADUSWWP 07:01
PROVIDERS: ATTEND Internal Medicine
DX: R93.2 Abnormal findings on diagnostic imaging of liver and biliary tract (principal)
CPT/HCPCS: 76700

== ENCOUNTER → 2017-04-17 | Outpatient (CLI) | payer BC, MEDICARE ==
--- NOTE | 2017-04-17 10:53 | NM ---
EXAMINATION TYPE: NM hepatobiliary w EF DATE OF EXAM: 04/17/2017 COMPARISON: Ultrasound abdomen 03/28/2017 HISTORY: Right upper quadrant pain, R 10.11 TECHNIQUE: After the intravenous administration of 5.26 mCi Tc 99m Mebrofenin hepatobiliary scintigra phy is performed. Immediate images post injection. FINDINGS: There is satisfactory initial accumulation of tracer by the liver. The gallbladder is visualized wit hin 4 minutes. The small bowel activity is noted within 24 minutes. At one hour 8 ounces of oral en sure plus is given to mimic CCK and gallbladder ejection fraction is calculated at 54 %, in the willy l range. Therefore there is no scintigraphic evidence of cystic or common bile duct obstruction to s uggest acute cholecystitis or gallbladder dyskinesia. IMPRESSION: Exam is within normal limits.
== END | disposition home or self-care (01) ==
LOC: RADNMMAIN 07:03
PROVIDERS: ATTEND Internal Medicine
DX: R10.11 Right upper quadrant pain (principal)
CPT/HCPCS: 78226; A9537

== ENCOUNTER → 2017-06-27 | Outpatient (CLI) | payer BC, MEDICARE ==
--- NOTE | 2017-06-27 12:49 | CT ---
EXAMINATION TYPE: CT cervical spine wo con DATE OF EXAM: 06/27/2017 COMPARISON: 09/24/2016 HISTORY: Chronic Migraines CT DLP: 357 mGycm CONTRAST: None CT of the cervical spine is performed in the axial plane at 2 mm thick sections. Reconstructed image s in the coronal, and sagittal plane are reviewed on the computer. No acute fractures are evident. Vertebral body alignment is normal. There is narrowing of the C5-6 disc height. Mild narrowing of the C6-7 disc height is present. Vertebral body heights are preserved. Minimal uncovertebral joint hypertrophy is present C3-4 with very mild foraminal narrowing left. Unco vertebral joint hypertrophy at C4-5 has mild right foraminal narrowing. There is narrowing of the dis c height at C5-6. Uncovertebral joint hypertrophy is present at this level with moderate left and rig ht foraminal narrowing. IMPRESSIONS: 1. Mild uncovertebral joint hypertrophy with minimal foraminal narrowing discussed above. 2. Mild degenerative disc changes C5-6 and to lesser degree C6-7.
== END | disposition home or self-care (01) ==
LOC: RADCTMAIN 08:08
PROVIDERS: ATTEND Neurological Surgery
DX: M99.71 Connective tissue and disc stenosis of intervertebral foramina of cervical region (principal); M47.812 Spondylosis without myelopathy or radiculopathy, cervical region; G43.709 Chronic migraine without aura, not intractable, without status migrainosus
CPT/HCPCS: 72125

== ENCOUNTER → 2017-07-22 | Outpatient (CLI) | payer BC, MEDICARE ==
--- NOTE | 2017-07-22 13:32 | XR ---
EXAMINATION TYPE: XR chest 2V DATE OF EXAM: 07/22/2017 COMPARISON: 05/10/2015 TECHNIQUE: PA and lateral views submitted. HISTORY: Preop FINDINGS: The lungs are clear and there is no pneumothorax, pleural effusion, or focal pneumonia. There is a catheter wire extending along the length of the left hemithorax and abdomen. Hypertrophic change of t he spine noted. Appears posterior to the patient on the lateral view. IMPRESSION: 1. No acute process.
== END | disposition home or self-care (01) ==
LOC: RADXRYALE 13:18
PROVIDERS: ATTEND Internal Medicine
DX: Z01.818 Encounter for other preprocedural examination (principal)
CPT/HCPCS: 71046

== ENCOUNTER → 2017-07-30 | Outpatient (CLI) | payer BC, MEDICARE ==
--- NOTE | 2017-07-30 12:03 | MM ---
Reason for exam: screening (asymptomatic). Last mammogram was performed 1 year ago. Physical Findings: A clinical breast exam by your physician is recommended on an annual basis and results should be correlated with mammographic findings. MG 3D Screening Mammo W/Cad Bilateral CC and MLO view(s) were taken. Prior study comparison: July 29, 2016, bilateral MG screening mammo w CAD. December 20, 2015, left breast MG 3d diag mammo w/cad LT. There are scattered fibroglandular densities. There are typically benign round calcifications in both breasts. There is no discrete abnormality. ASSESSMENT: Benign, BI-RAD 2 RECOMMENDATION: Routine screening mammogram of both breasts in 1 year.
== END | disposition home or self-care (01) ==
LOC: RADMAMWWP 08:52
PROVIDERS: ATTEND Internal Medicine
DX: Z12.31 Encounter for screening mammogram for malignant neoplasm of breast (principal)
CPT/HCPCS: 77063; 77067

== ENCOUNTER → 2018-06-11 | Outpatient (CLI) | payer MEDICARE ==
--- NOTE | 2018-06-11 13:23 | XR ---
EXAMINATION TYPE: XR chest 2V DATE OF EXAM: 06/11/2018 COMPARISON: 02/10/2018 TECHNIQUE: PA and lateral views submitted. HISTORY: Stimulator FINDINGS: The lungs are clear and there is no pneumothorax, pleural effusion, or focal pneumonia. There is a wire likely is part of a stimulator device overlying the left hemithorax stable in position. No overt failure. Curvature the spine with mild hypertrophic changes. IMPRESSION: 1. No acute process.
[2018-06-11 13:56] LABS: Anion Gap 9 mmol/L; Carbon Dioxide 26 mmol/L (22-30); Chloride 103 mmol/L (98-107); Potassium 4.4 mmol/L (3.5-5.1); Sodium 138 mmol/L (137-145)
[2018-06-11 14:00] LABS: Appearance,Urine Clear (Clear); Bilirubin,Urine Negative (Negative); Blood,Urine Negative (Negative); Color,Urine Yellow; Glucose,Urine (UA) Negative (Negative); Ketones,Urine Negative (Negative); Leukocyte Esterase,Urine Negative (Negative); Nitrite,Urine Negative (Negative); Protein,Urine Negative (Negative); Specific Gravity,Urine 1.014 (1.001-1.035); Urobilinogen,Urine <2.0 mg/dL (<2.0)
[2018-06-11 14:03] LABS: Basophils # (A) 0.1 k/uL (0-0.2); Basophils % (A) 1 %; Eosinophils # (A) 0.1 k/uL (0-0.7); Eosinophils % (A) 2 %; HCT 46.3 % (34.0-46.0); HGB 14.9 gm/dL (11.4-16.0); Lymphocytes # (A) 2.1 k/uL (1.0-4.8); Lymphocytes % (A) 25 %; MCH 28.8 pg (25.0-35.0); MCHC 32.1 g/dL (31.0-37.0); MCV 89.8 fL (80.0-100.0); Mean Platelet Volume 7.1; Monocytes # (A) 0.5 k/uL (0-1.0); Monocytes % (A) 6 %; Neutrophils # (A) 5.4 k/uL (1.3-7.7); Neutrophils % (A) 65 %; Platelet Count 327 k/uL (150-450); RBC 5.16 m/uL (3.80-5.40); WBC 8.4 k/uL (3.8-10.6)
[2018-06-11 14:06] LABS: INR 0.9 (<1.2); Prothrombin Time 10.2 sec (9.0-12.0)
== END | disposition home or self-care (01) ==
LOC: RADXRMAIN 12:58
PROVIDERS: ATTEND Neurological Surgery
DX: G43.709 Chronic migraine without aura, not intractable, without status migrainosus (principal)
CPT/HCPCS: 71046; 80051; 81003; 82565; 85025; 85610; 87086

== ENCOUNTER → 2018-07-15 | Outpatient (CLI) | payer BC | END | disposition home or self-care (01) | LOC: LABWHC1 10:06 | PROVIDERS: ATTEND Neurological Surgery | DX: G43.709 Chronic migraine without aura, not intractable, without status migrainosus (principal) | CPT/HCPCS: 93005 ==

== ENCOUNTER 2018-08-03 10:56 | Emergency (ER) | payer BC ==
[2018-08-03 11:05] VITALS: BP 148/91; PULSE 97; RESP 18; TEMP 97.7
--- NOTE | 2018-08-03 11:23 | ED ---
General Adult HPI - General Chief complaint: Wound/Laceration Stated complaint: fall, head injury Time Seen by Provider: 08/03/18 11:12 Source: patient Mode of arrival: ambulatory Limitations: no limitations - History of Present Illness Initial comments: Patient is a 62-year-old female who presents with a chief complaint of a fall and a head laceration. Patient says that she fell about 10:00 while walking out of [place]. She tripped on a loose tile and hit her head on a stucco wall. She denies losing consciousness, she states that she was able to ambulate well without assistance after the event. She denies any other injuries. She is alert and oriented, answers questions appropriately. She does not take any blood thinners. Her only medication that she takes daily Cymbalta. She denies any neck pain today - Related Data Home Medications Medication Instructions Recorded Confirmed DULoxetine HCL [Cymbalta] 60 mg PO DAILY 04/01/16 08/03/18 L.acidoph,Paracasei, B.lactis 1 tab PO DAILY 04/01/16 08/03/18 [Probiotic] Multivitamins, Thera [Multivitamin 1 tab PO DAILY 04/01/16 08/03/18 (formulary)] Folic Acid 0.4 mg PO DAILY 09/24/16 08/03/18 Magnesium Oxide [Mag-Ox] 250 mg PO DAILY 09/24/16 08/03/18 Turmeric Root Extract [Turmeric] 500 mg PO DAILY 09/24/16 08/03/18 Allergies Allergy/AdvReac Type Severity Reaction Status Date / Time No Known Allergies Allergy Verified 08/03/18 11:38 Review of Systems ROS Statement: Those systems with pertinent positive or pertinent negative responses have been documented in the HPI. ROS Other: All systems not noted in ROS Statement are negative. Neurological: Reports: headache (Patient states she has chronic headache) Past Medical History Past Medical History: Osteoarthritis (OA) Additional Past Medical History / Comment(s): RECTAL PROLAPSE, MIGRAINEs, cervicogenic headache, celiacs disease(gluten free diet), "ddd upper spine"oa spine.diverticulosis. History of Any Multi-Drug Resistant Organisms: None Reported Past Surgical History: Hysterectomy, Tubal Ligation Additional Past Surgical History / Comment(s): OCCIPITAL STIMULATOR IMPLANT, (BATTERY PACK IS IN LEFT POSTERIOR HIP) colonoscopy, ERIN CATARACT SX Past Anesthesia/Blood Transfusion Reactions: No Reported Reaction Past Psychological History: No Psychological Hx Reported Smoking Status: Never smoker Past Alcohol Use History: None Reported Past Drug Use History: None Reported - Past Family History Mother Family Medical History: Deep Vein Thrombosis (DVT) Brother(s) Family Medical History: Cancer Sister(s) Family Medical History: Cancer General Exam Limitations: no limitations General appearance: alert, in no apparent distress Head exam: Present: normocephalic, other (Patient has a contusion over the left forehead.) Eye exam: Present: normal appearance, PERRL, EOMI. Absent: scleral icterus, nystagmus ENT exam: Present: normal exam, normal oropharynx Neck exam: Present: normal inspection Respiratory exam: Present: normal lung sounds bilaterally. Absent: respiratory distress, wheezes Cardiovascular Exam: Present: regular rate, normal rhythm GI/Abdominal exam: Present: soft. Absent: distended, tenderness Rectal exam: Present: deferred Extremities exam: Present: normal inspection Back exam: Present: normal inspection Neurological exam: Present: alert, oriented X3, CN II-XII intact, normal gait Psychiatric exam: Present: normal affect, normal mood Skin exam: Present: warm, dry, intact Course Vital Signs 08/03/18 11:02 Temperature 97.7 F Pulse Rate 97 Respiratory 18 Rate Blood Pressure 148/91 O2 Sat by Pulse 98 Oximetry Medical Decision Making - Medical Decision Making Patient presents with a chief complaint of a fall. On initial evaluation, vitals are stable, patient is no acute distress. She is neurovascularly intact, did not lose consciousness, denies the use of blood thinners. Patient is alert and appropriate. c spine cleared by nexus criteria. patient reports no other injuries or symptoms 12:12 PM Computed tomography scan of the head does not show any acute intracranial process. There are no fractures identified. There is soft tissue edema and mild subcutaneous air at the area of the hematoma area after the wound was cleaned, does not appear to be any area requiring suture. At this time, patient stable for discharge. She was instructed to use Tylenol for pain, return to the ED if symptoms worsen or change. Otherwise follow-up with primary care in 1-2 days. Disposition Clinical Impression: Hematoma, Fall Disposition: HOME SELF-CARE Condition: Good Instructions (If sedation given, give patient instructions): Hematoma (ED) Is patient prescribed a controlled substance at d/c from ED?: No Referrals: Francisca Hancock MD [Primary Care Provider] - 1-2 days
--- NOTE | 2018-08-03 11:54 | CT ---
EXAMINATION TYPE: CT brain wo con DATE OF EXAM: 08/03/2018 COMPARISON: 09/24/2016 INDICATION: Headache post fall. Patient hit left of head on wall. Laceration and contusion at site. DLP: 1083.4 mGycm, Automated exposure control for dose reduction was used. CONTRAST: None CT of the brain is performed utilizing 3 mm thick sections through the posterior fossa and 3 mm thick sections through the remaining calvarium. Study is performed within 24 hours of arrival to the hosp ital. There is soft tissue swelling over the left temporal region. Small amount of subcutaneous emphysema m ay be present. No underlying fracture is identified. No abnormal hyperdensity is present to suggest an acute intracranial hemorrhage. No mass lesion is evident. No acute infarcts are evident. Ventricles and sulci are appropriate for the patient age. Some very minimal fluid is in the right maxillary sinus. Correlate for acute right maxillary sinusiti s. Remaining paranasal sinuses and mastoid air cells are clear. IMPRESSIONS: 1. No acute intracranial process. 2. Soft tissue swelling left temporal region with small amount of subcutaneous emphysema at this loca tion.
[2018-08-03] MEDS ORDERED: KETOROLAC 30 MG/ML 1 ML VIAL IM STA (12:49)
== END 2018-08-03 12:59 | disposition home or self-care (01) ==
LOC: EC 10:56
DX: S00.83XA Contusion of other part of head, initial encounter (principal); Z79.899 Other long term (current) drug therapy; W01.198A Fall on same level from slipping, tripping and stumbling with subsequent striking against other object, initial encounter; Y93.01 Activity, walking, marching and hiking; Y92.22 Religious institution as the place of occurrence of the external cause
CPT/HCPCS: 70450; 99283; 96372; J1885

== ENCOUNTER 2018-08-07 14:05 | Emergency (ER) | payer BC ==
--- NOTE | 2018-08-07 14:19 | ED ---
Head Injury HPI - General Chief complaint: Head Injury Stated complaint: head injury Time Seen by Provider: 08/07/18 14:18 Source: patient, RN notes reviewed, old records reviewed Mode of arrival: ambulatory Limitations: no limitations - History of Present Illness Initial comments: This is a 62-year-old female the ER for evaluation. Presents today for evaluation regards to headache injury. Patient had a slip and fall injury above her left eye. The swelling around there. Left eye left-sided face of increased since the fall. She had imaging CAT scan of the time which are negative. No nausea vomiting no neurological complaints. Patient is complaining of some pain and pressure and swelling around that left eye MD Complaint: head injury, head pain -: hour(s) Mechanism of Injury: other (Fall) Location: frontal, temporal Loss of Consciousness: yes Previous Trauma to this Area: Yes Place: home Radiation: none Severity: moderate Severity scale (1-10): 5 Quality: aching Consistency: constant Provoking factors: none known Associated Symptoms: confusion - Related Data Home Medications Medication Instructions Recorded Confirmed DULoxetine HCL [Cymbalta] 60 mg PO DAILY 04/01/16 08/03/18 L.acidoph,Paracasei, B.lactis 1 tab PO DAILY 04/01/16 08/03/18 [Probiotic] Multivitamins, Thera [Multivitamin 1 tab PO DAILY 04/01/16 08/03/18 (formulary)] Folic Acid 0.4 mg PO DAILY 09/24/16 08/03/18 Magnesium Oxide [Mag-Ox] 250 mg PO DAILY 09/24/16 08/03/18 Turmeric Root Extract [Turmeric] 500 mg PO DAILY 09/24/16 08/03/18 Allergies/Adverse reactions: Allergies Allergy/AdvReac Type Severity Reaction Status Date / Time No Known Allergies Allergy Verified 08/03/18 11:38 Review of Systems ROS Statement: Those systems with pertinent positive or pertinent negative responses have been documented in the HPI. ROS Other: All systems not noted in ROS Statement are negative. Past Medical History Past Medical History: Osteoarthritis (OA) Additional Past Medical History / Comment(s): RECTAL PROLAPSE, MIGRAINEs, cervicogenic headache, celiacs disease(gluten free diet), "ddd upper spine"oa spine.diverticulosis. History of Any Multi-Drug Resistant Organisms: None Reported Past Surgical History: Hysterectomy, Tubal Ligation Additional Past Surgical History / Comment(s): OCCIPITAL STIMULATOR IMPLANT, (BA TTERY PACK IS IN LEFT POSTERIOR HIP) colonoscopy, ERIN CATARACT SX Past Anesthesia/Blood Transfusion Reactions: No Reported Reaction Past Psychological History: No Psychological Hx Reported Smoking Status: Never smoker Past Alcohol Use History: None Reported Past Drug Use History: None Reported - Past Family History Mother Family Medical History: Deep Vein Thrombosis (DVT) Brother(s) Family Medical History: Cancer Sister(s) Family Medical History: Cancer General Exam Limitations: no limitations General appearance: alert, in no apparent distress Head exam: Present: normocephalic, normal inspection. Absent: atraumatic (Patient does have left eye edema and erythema as well as bruising above left eye left forehead and left temporal area) Eye exam: Present: normal appearance, PERRL, EOMI. Absent: scleral icterus, conjunctival injection, periorbital swelling ENT exam: Present: normal exam, mucous membranes moist Neck exam: Present: normal inspection. Absent: tenderness, meningismus, lymphadenopathy Respiratory exam: Present: normal lung sounds bilaterally. Absent: respiratory distress, wheezes, rales, rhonchi, stridor Cardiovascular Exam: Present: regular rate, normal rhythm, normal heart sounds. Absent: systolic murmur, diastolic murmur, rubs, gallop, clicks GI/Abdominal exam: Present: soft, normal bowel sounds. Absent: distended, tenderness, guarding, rebound, rigid Extremities exam: Present: normal inspection, full ROM, normal capillary refill. Absent: tenderness, pedal edema, joint swelling, calf tenderness Back exam: Present: normal inspection Neurological exam: Present: alert, oriented X3, CN II-XII intact Psychiatric exam: Present: normal affect, normal mood Skin exam: Present: warm, dry, intact, normal color. Absent: rash Course Vital Signs 08/07/18 14:09 Temperature 98.2 F Pulse Rate 92 Respiratory 18 Rate Blood Pressure 134/84 O2 Sat by Pulse 96 Oximetry - Reevaluation(s) Reevaluation #1: 08/07/18 15:16 Medical record is reviewed Reevaluation #2: 08/07/18 15:17 Patient has pain improved Medical Decision Making - Medical Decision Making 62 female the ER for evaluation. Patient has left eye pain secondary to prior trauma fall. Patient is reviewed. Computed tomography scan say which are negative - Radiology Data Radiology results: report reviewed (CT brain facial bones negative for traumatic injury), image reviewed Disposition Clinical Impression: Fall, Closed head injury, Traumatic orbital hematoma Disposition: HOME SELF-CARE Condition: Good Instructions (If sedation given, give patient instructions): Concussion (ED) Is patient prescribed a controlled substance at d/c from ED?: No Referrals: Francisca Hancock MD [Primary Care Provider] - 1-2 days
--- NOTE | 2018-08-07 15:00 | CT ---
EXAMINATION TYPE: CT brain wo con DATE OF EXAM: 08/07/2018 COMPARISON: 08/03/2018 HISTORY: Fall 5 days ago. Left parietal injury. Bruising to left side of face. Increased facial and h ead pain. History of implant for migraines. CT DLP: 1304.[address] of the brain was performed. The ventricles, basal cisterns and sulci overlying the cerebral convexities demonstrate mild enlargem ent. There is no evidence for intracranial hemorrhage or sulcal effacement. There is decreased attenuation about the periventricular white matter and deep white matter of both c erebral hemispheres, compatible with chronic small vessel ischemia. Differential diagnosis does inclu de demyelination. No mass effects are seen.No midline shift. Osseous calvarium is intact. Left frontal scalp hematoma. If symptoms persist consider MRI. IMPRESSION: 1. Age related atrophic and chronic small vessel ischemic change without acute intracranial process s een at this time.
--- NOTE | 2018-08-07 15:04 | CT ---
EXAMINATION TYPE: CT facial bones wo con DATE OF EXAM: 08/07/2018 COMPARISON: None HISTORY: Fall 5 days ago. Left parietal injury. Bruising to left side of face. Increased facial and h ead pain. History of implant for migraines. CT DLP: 1304.[address] of the facial bones was performed in the axial and coronal planes. Bone and soft tissu e window settings are submitted. No significant soft tissue swelling is appreciated. I do not see evidence for displaced facial bone fracture or depressed facial bone fracture. The globes are intact. Paranasal sinuses are well-aerated. IMPRESSION: 1. No evidence for depressed or displaced facial bone fracture.
[2018-08-07] MEDS ORDERED: Acetaminophen-Codeine 300-30mg TAB PO STA (15:58)
[2018-08-07] MEDS ORDERED: ACET/COD 300 MG/30 MG STARTER PACK 6 TAB BTL PO STA (15:58)
[2018-08-07 16:11] VITALS: BP 122/75; PULSE 70; RESP 16; TEMP 97.5
== END 2018-08-07 16:11 | disposition home or self-care (01) ==
LOC: EC 14:05
DX: S05.12XA Contusion of eyeball and orbital tissues, left eye, initial encounter (principal); M19.90 Unspecified osteoarthritis, unspecified site; Z79.899 Other long term (current) drug therapy; W01.0XXA Fall on same level from slipping, tripping and stumbling without subsequent striking against object, initial encounter
CPT/HCPCS: 70450; 70486; 99284

== ENCOUNTER → 2018-08-17 | Outpatient (CLI) | payer BC ==
--- NOTE | 2018-08-18 13:47 | MM ---
Reason for exam: screening (asymptomatic). Last mammogram was performed 1 year and 1 month ago. Physical Findings: A clinical breast exam by your physician is recommended on an annual basis and results should be correlated with mammographic findings. MG 3D Screening Mammo W/Cad Bilateral CC and MLO view(s) were taken. Prior study comparison: July 30, 2017, bilateral MG 3d screening mammo w/cad. July 29, 2016, bilateral MG screening mammo w CAD. The breast tissue is heterogeneously dense. This may lower the sensitivity of mammography. There is a stable round left calcification. No suspicious abnormality. ASSESSMENT: Benign, BI-RAD 2 RECOMMENDATION: Routine screening mammogram of both breasts in 1 year.
== END ==
LOC: RADMAMWWP 08:46
PROVIDERS: ATTEND Internal Medicine
DX: Z12.31 Encounter for screening mammogram for malignant neoplasm of breast (principal)
CPT/HCPCS: 77063; 77067

== ENCOUNTER → 2019-03-03 | Outpatient (CLI) | payer MEDICARE ==
--- NOTE | 2019-03-03 09:56 | US ---
EXAMINATION TYPE: US abdomen complete DATE OF EXAM: 03/03/2019 COMPARISON: US 03/28/2017 CLINICAL HISTORY: R10.11 right upper quadrant pain. EXAM MEASUREMENTS: Liver Length: 13.3 cm Gallbladder Wall: 0.2 cm CBD: 0.4 cm Spleen: 7.6 cm Right Kidney: 9.9 x 5.1 x 5.1 cm Left Kidney: 10.1 x 4.8 x 4.7 cm Pancreas: Obscured by bowel gas Liver: Increased attenuation Gallbladder: wnl Evidence for sonographic Morrison's sign: No CBD: wnl as visualized, distal portion is obscured by bowel gas Spleen: wnl Right Kidney: Parapelvic simple appearing cyst measuring 1.6 x 0.8 x 1.2 cm Left Kidney: No hydronephrosis or masses seen Upper IVC: wnl Abd Aorta: Proximal portion obscured by bowel gas, visualized portion wnl The visualized liver is heterogeneously hyperechoic similar to prior. The intrahepatic portion of th e IVC and visualized mid and distal abdominal aorta are within normal limits. There is no evidence o f cholelithiasis. Common bile duct is unremarkable. The visualized portions of the pancreas are sli ghtly heterogeneous. Portions obscured by overlying bowel gas per technologist. The spleen is unrema rkable. Kidneys are symmetric and free of hydronephrosis. IMPRESSION: No acute findings are evident. Probable fatty infiltration liver redemonstrated.
== END | disposition home or self-care (01) ==
LOC: RADUSWWP 07:20
PROVIDERS: ATTEND Internal Medicine
DX: R10.11 Right upper quadrant pain (principal)
CPT/HCPCS: 76700

== ENCOUNTER → 2019-04-24 | Outpatient (CLI) | payer MEDICARE ==
--- NOTE | 2019-04-25 10:44 | CT ---
EXAMINATION TYPE: CT abdomen w con DATE OF EXAM: 04/24/2019 HISTORY: Epigastric pain, weight loss, fatty liver. CT DLP: 408.50mGycm Automated Exposure Control for Dose Reduction was Utilized. CONTRAST: CT scan of the abdomen is performed with IV Contrast, patient injected with 100 mL of Isovue 300. COMPARISON: 05/10/2015 FINDINGS: LUNG BASES: There is a 3 mm right lower lobe solid pulmonary nodule stable from 2016, therefore benig n. Mild bibasilar subsegmental dependent atelectasis. LIVER/GB: Hepatic parenchyma is diffusely hypoattenuated in comparison to that of the spleen, most co mmonly seen in hepatic steatosis. This finding limits evaluation for hepatic masses. No gross evidenc e of hepatic mass is seen. No intrahepatic biliary ductal dilatation. No cholelithiasis. PANCREAS: No significant abnormality is seen. SPLEEN: No significant abnormality is seen. ADRENALS: No significant abnormality is seen. KIDNEYS: There is a too small to accurately characterize left lower pole 5 mm hypoattenuated renal [place]. Few bilateral renal sinus cysts. No hydronephrosis of either kidney. BOWEL: Very small hiatal hernia is seen on the prior. Few scattered colonic diverticula without peric olonic fat stranding. No dilated large or small bowel LYMPH NODES: No greater than 1cm abdominal lymph nodes are appreciated. OSSEOUS STRUCTURES: Minimal degenerative changes of the thoracolumbar junction. OTHER: Subcutaneous lesion is seen in the posterior soft tissues, likely nerve root stimulator lead. IMPRESSION: 1. Stable small hiatal hernia in comparison to 2016. 2. Mild degree hepatic steatosis. 3. Stable 3 mm right middle lobe pulmonary nodule dating back to 2016, which can be considered benign .
== END | disposition home or self-care (01) ==
LOC: RADCTMAIN 09:41
PROVIDERS: ATTEND Internal Medicine Gastroenterology
DX: K76.0 Fatty (change of) liver, not elsewhere classified (principal); K44.9 Diaphragmatic hernia without obstruction or gangrene; R63.4 Abnormal weight loss
CPT/HCPCS: 74160; Q9967

== ENCOUNTER → 2019-07-26 | Outpatient (CLI) | payer MEDICARE ==
--- NOTE | 2019-07-26 16:06 | US ---
EXAMINATION TYPE: US abdomen complete DATE OF EXAM: 07/26/2019 COMPARISON: Ultrasound 03/03/2019, CT 04/24/2019 CLINICAL HISTORY: R10.12 Left upper quadrant pain. LUQ pain. EXAM MEASUREMENTS: Liver Length: 12.9 cm Gallbladder Wall: 0.2 cm CBD: 0.4 cm Spleen: 8.0 cm Right Kidney: 9.7 x 3.7 x 4.7 cm Left Kidney: 10.0 x 4.2 x 5.2 cm Limited visualization due to overlying bowel gas Pancreas: Appears echogenic in appearance. Tail obscured by overlying bowel gas. Liver: Scanned through ribs due to bowel gas. No prominent masses or lesions seen. Coarsened echot exture could be due to hepatocellular disease or hepatic steatosis Gallbladder: wnl Evidence for sonographic Morrison's sign: neg CBD: wnl Spleen: wnl Right Kidney: cystic appearing lesion with septation vs dilated collecting systems = 1.7 x 1.3 x 2.0 cm Left Kidney: upper pole cystic appearing lesion in renal sinus= 1.3 x 1.1 x 1.2 cm Upper IVC: wnl in its visualized portions. Abd Aorta: proximal obscured by overlying bowel gas There is no ascites. Kidneys show normal cortical medullary differentiation. IMPRESSION: Exam is somewhat limited. Possible hepatocellular disease, hepatic steatosis. Parapelvic cysts are noted within the kidneys.
== END | disposition home or self-care (01) ==
LOC: RADUSMAIN 15:09
PROVIDERS: ATTEND Internal Medicine
DX: N94.89 Other specified conditions associated with female genital organs and menstrual cycle (principal)
CPT/HCPCS: 76700

== ENCOUNTER 2019-10-27 10:43 | Emergency (ER) | payer MEDICARE ==
[2019-10-27] MEDS ORDERED: SODIUM CHLORIDE 0.9% 500 ML 500 ML IV STA (11:22)
[2019-10-27] MEDS ORDERED: PANTOPRAZOLE 40 MG/10 ML VIAL IVP STA (11:22)
[2019-10-27] MEDS ORDERED: KETOROLAC 15 MG/ML 1 ML VIAL IVP STA (11:24)
[2019-10-27] MEDS ORDERED: MAG HYDROX/AL HYDROX/SIMETH 30 ML, HYOSCYAMINE ELIXIR 10 ML, LIDOCAINE VISCOUS 2% 10 ML PO STA ×3 (11:24)
[2019-10-27 11:50] LABS: Appearance,Urine Clear (Clear); Bilirubin,Urine Negative (Negative); Blood,Urine Negative (Negative); Color,Urine Yellow; Glucose,Urine (UA) Negative (Negative); Ketones,Urine Negative (Negative); Leukocyte Esterase,Urine Trace (Negative); Mucus,Urine Rare /hpf; Nitrite,Urine Negative (Negative); Protein,Urine Negative (Negative); RBC,Urine <1 /hpf (0-5); Specific Gravity,Urine 1.019 (1.001-1.035); Squamous Epithelial Cell,Urine <1 /hpf (0-4); Urobilinogen,Urine <2.0 mg/dL (<2.0); WBC,Urine 1 /hpf (0-5)
--- NOTE | 2019-10-27 12:00 | ED ---
Abdominal Pain HPI - General Chief Complaint: Abdominal Pain Stated Complaint: abd pain Time Seen by Provider: 10/27/19 11:02 Source: patient Mode of arrival: ambulatory Limitations: no limitations - History of Present Illness Initial Comments: Patient is a 63-year-old female presenting to emergency Department with complaints of upper abdominal pain that has been increasing over the past week. Patient states she was recently hospitalized for diverticulitis at [facility] in July and she states that this pain is feeling similar. She states she has been trying to follow up with her GI doctor as well as her PCP but has been having a hard time getting in. She does admit to some mild nausea, belching a lot as well as some burning in her epigastric area. She has been having regular bowel movements, no urinary complaints. She denies any fever, chills, chest pain, shortness of breath. She admits to history of tubal ligation, no other abdominal surgeries. She has no further complaints at this time. Upon arrival to the ER, vital signs are stable. - Related Data Home Medications Medication Instructions Recorded Confirmed DULoxetine HCL [Cymbalta] 60 mg PO DAILY 04/01/16 10/27/19 L.acidoph,Paracasei, B.lactis 1 tab PO DAILY 04/01/16 10/27/19 [Probiotic] Multivitamins, Thera [Multivitamin 1 tab PO DAILY 04/01/16 10/27/19 (formulary)] Folic Acid 0.4 mg PO DAILY 09/24/16 10/27/19 Turmeric Root Extract [Turmeric] 500 mg PO DAILY 09/24/16 10/27/19 Docusate [Colace] 100 mg PO DAILY 10/27/19 10/27/19 Polyethylene Glycol 3350 [Miralax] 17 gm PO DAILY 10/27/19 10/27/19 Sucralfate [Carafate] 1 gm PO TID 10/27/19 10/27/19 Allergies Allergy/AdvReac Type Severity Reaction Status Date / Time No Known Allergies Allergy Verified 10/27/19 11:56 Review of Systems ROS Statement: Those systems with pertinent positive or pertinent negative responses have been documented in the HPI. ROS Other: All systems not noted in ROS Statement are negative. Past Medical History Past Medical History: Osteoarthritis (OA) Additional Past Medical History / Comment(s): RECTAL PROLAPSE, MIGRAINEs, cervicogenic headache, celiacs disease(gluten free diet), "ddd upper spine"oa spine.diverticulosis. History of Any Multi-Drug Resistant Organisms: None Reported Past Surgical History: Hysterectomy, Tubal Ligation Additional Past Surgical History / Comment(s): OCCIPITAL STIMULATOR IMPLANT, (BATTERY PACK IS IN LEFT POSTERIOR HIP) colonoscopy, ERIN CATARACT SX Past Anesthesia/Blood Transfusion Reactions: No Reported Reaction Past Psychological History: No Psychological Hx Reported Smoking Status: Never smoker Past Alcohol Use History: None Reported Past Drug Use History: Marijuana - Past Family History Mother Family Medical History: Deep Vein Thrombosis (DVT) Brother(s) Family Medical History: Cancer Sister(s) Family Medical History: Cancer General Exam - General Exam Comments Initial Comments: GENERAL: Patient is well-developed and well-nourished. Patient is nontoxic and in no acute distress. HEAD: Atraumatic, normocephalic. EYES: Pupils equal round and reactive to light, extraocular movements intact, sclera anicteric, conjunctiva are normal. Eyelids were unremarkable. ENT: TMs normal, nares patent, oropharynx clear without exudates. Moist mucous membranes. NECK: Normal range of motion, supple without lymphadenopathy or JVD. LUNGS: Unlabored respirations. Breath sounds clear to auscultation bilaterally and equal. No wheezes rales or rhonchi. HEART: Regular rate and rhythm without murmurs, rubs or gallops. ABDOMEN: Diffuse abdominal tenderness, increase in upper abdomen, epigastric area. Soft, normoactive bowel sounds. No masses appreciated. : Deferred MUSCULOSKELETAL: Normal extremities with adequate strength and normal range of motion, no pitting or edema. No clubbing or cyanosis. NEUROLOGICAL: Patient is alert and oriented x 3. Motor and sensory are also intact. Cranial nerves II through XII grossly intact. Symmetrical smile. Normal speech, normal gait. PSYCH: Normal mood, normal affect. SKIN: Warm, Dry, normal turgor, no rashes or lesions noted. Limitations: no limitations Course Vital Signs 10/27/19 10/27/19 10:58 14:28 Temperature 98.3 F 97.6 F Pulse Rate 85 79 Respiratory 16 18 Rate Blood Pressure 132/79 118/76 O2 Sat by Pulse 100 100 Oximetry Medical Decision Making - Medical Decision Making Patient is a 63-year-old female presenting with epigastric, upper abdominal pain has been increasing over the past week. She has a history of diverticulosis. Vital signs are stable. Lab work shows no acute abnormality, lipase is 121, lactic acid is normal at 0.9. Urine shows no evidence of infection. I did obtain a CT of the abdomen which shows enteritis, diverticulosis no signs of diverticulitis. Patient received GI cocktail, Protonix and Toradol reports improvement in her symptoms. She has been resting comfortably in the ER. I discussed these findings with the patient. Her symptoms are mostly likely related to GERD, colitis. Patient is stable for discharge. She'll follow up with GI. She states [facility] but they are not in her not work. I will give patient a referral to Dr. Lagunas. Also start patient on omeprazole. Patient is agreement this plan of care. Return parameters were discussed with the patient she verbalized understanding. Case discussed with Dr. Fischer. - Lab Data Result diagrams: 10/27/19 11:53 10/27/19 11:36 Lab Results 10/27/19 10/27/19 10/27/19 Range/Units 11:29 11:36 11:36 WBC (3.8-10.6) k/uL RBC (3.80-5.40) m/uL Hgb (11.4-16.0) gm/dL Hct (34.0-46.0) % MCV (80.0-100.0) fL MCH (25.0-35.0) pg MCHC (31.0-37.0) g/dL RDW (11.5-15.5) % Plt Count (150-450) k/uL Neutrophils % % Lymphocytes % % Monocytes % % Eosinophils % % Basophils % % Neutrophils # (1.3-7.7) k/uL Lymphocytes # (1.0-4.8) k/uL Monocytes # (0-1.0) k/uL Eosinophils # (0-0.7) k/uL Basophils # (0-0.2) k/uL PT (9.0-12.0) sec INR (<1.2) APTT (22.0-30.0) sec Sodium 137 (137-145) mmol/L Potassium 4.3 (3.5-5.1) mmol/L Chloride 105 (98-107) mmol/L Carbon Dioxide 26 (22-30) mmol/L Anion Gap 6 mmol/L BUN 29 H (7-17) mg/dL Creatinine 0.72 (0.52-1.04) mg/dL Est GFR (CKD-EPI)AfAm >90 (>60 ml/min/1.73 sqM) Est GFR (CKD-EPI)NonAf 90 (>60 ml/min/1.73 sqM) Glucose 93 (74-99) mg/dL Plasma Lactic Acid Mic 0.9 (0.7-2.0) mmol/L Calcium 10.0 (8.4-10.2) mg/dL Total Bilirubin 0.4 (0.2-1.3) mg/dL AST 32 (14-36) U/L ALT 21 (4-34) U/L Alkaline Phosphatase 81 (38-126) U/L Total Protein 6.9 (6.3-8.2) g/dL Albumin 4.5 (3.5-5.0) g/dL Amylase 70 (30-110) U/L Lipase 121 (23-300) U/L Urine Color Yellow Urine Appearance Clear (Clear) Urine pH 6.0 (5.0-8.0) Ur Specific [place] 1.019 (1.001-1.035) Urine Protein Negative (Negative) Urine Glucose (UA) Negative (Negative) Urine Ketones Negative (Negative) Urine Blood Negative (Negative) Urine Nitrite Negative (Negative) Urine Bilirubin Negative (Negative) Urine Urobilinogen <2.0 (<2.0) mg/dL Ur Leukocyte Esterase Trace H (Negative) Urine RBC <1 (0-5) /hpf Urine WBC 1 (0-5) /hpf Ur Squamous Epith Cells <1 (0-4) /hpf Urine Mucus Rare H (None) /hpf 10/27/19 10/27/19 Range/Units 11:53 11:53 WBC 7.8 (3.8-10.6) k/uL RBC 4.40 (3.80-5.40) m/uL Hgb 13.0 (11.4-16.0) gm/dL Hct 40.1 (34.0-46.0) % MCV 91.3 (80.0-100.0) fL MCH 29.6 (25.0-35.0) pg MCHC 32.4 (31.0-37.0) g/dL RDW 12.4 (11.5-15.5) % Plt Count 312 (150-450) k/uL Neutrophils % 68 % Lymphocytes % 24 % Monocytes % 5 % Eosinophils % 2 % Basophils % 0 % Neutrophils # 5.3 (1.3-7.7) k/uL Lymphocytes # 1.9 (1.0-4.8) k/uL Monocytes # 0.4 (0-1.0) k/uL Eosinophils # 0.1 (0-0.7) k/uL Basophils # 0.0 (0-0.2) k/uL PT 10.0 (9.0-12.0) sec INR 1.0 (<1.2) APTT 22.7 (22.0-30.0) sec Sodium (137-145) mmol/L Potassium (3.5-5.1) mmol/L Chloride (98-107) mmol/L Carbon Dioxide (22-30) mmol/L Anion Gap mmol/L BUN (7-17) mg/dL Creatinine (0.52-1.04) mg/dL Est GFR (CKD-EPI)AfAm (>60 ml/min/1.73 sqM) Est GFR (CKD-EPI)NonAf (>60 ml/min/1.73 sqM) Glucose (74-99) mg/dL Plasma Lactic Acid Mic (0.7-2.0) mmol/L Calcium (8.4-10.2) mg/dL Total Bilirubin (0.2-1.3) mg/dL AST (14-36) U/L ALT (4-34) U/L Alkaline Phosphatase (38-126) U/L Total Protein (6.3-8.2) g/dL Albumin (3.5-5.0) g/dL Amylase (30-110) U/L Lipase (23-300) U/L Urine Color Urine Appearance (Clear) Urine pH (5.0-8.0) Ur Specific [place] (1.001-1.035) Urine Protein (Negative) Urine Glucose (UA) (Negative) Urine Ketones (Negative) Urine Blood (Negative) Urine Nitrite (Negative) Urine Bilirubin (Negative) Urine Urobilinogen (<2.0) mg/dL Ur Leukocyte Esterase (Negative) Urine RBC (0-5) /hpf Urine WBC (0-5) /hpf Ur Squamous Epith Cells (0-4) /hpf Urine Mucus (None) /hpf Disposition Clinical Impression: Epigastric pain Disposition: HOME SELF-CARE Condition: Stable Instructions (If sedation given, give patient instructions): Abdominal Pain (ED) Additional Instructions: Please return to the Emergency Department if symptoms worsen or any other concerns. Recommended omeprazole daily. Follow up with GI doctor as discussed. Is patient prescribed a controlled substance at d/c from ED?: No Referrals: Francisca Hancock MD [Primary Care Provider] - 1-2 days Elton Lagunas MD [STAFF PHYSICIAN] - 1-2 days
[2019-10-27 12:36] LABS: ALT 21 U/L (4-34); AST 32 U/L (14-36); African American GFR (CKD) >90 (>60 ml/min/1.73 sqM); Albumin 4.5 g/dL (3.5-5.0); Alkaline Phosphatase 81 U/L (38-126); Amylase 70 U/L (30-110); Anion Gap 6 mmol/L; Blood Urea Nitrogen 29 mg/dL (7-17); Carbon Dioxide 26 mmol/L (22-30); Chloride 105 mmol/L (98-107); Glucose 93 mg/dL (74-99); Non-African American GFR(CKD) 90 (>60 ml/min/1.73 sqM); Potassium 4.3 mmol/L (3.5-5.1); Sodium 137 mmol/L (137-145); Total Bilirubin 0.4 mg/dL (0.2-1.3); Total Protein 6.9 g/dL (6.3-8.2)
--- NOTE | 2019-10-27 13:15 | CT ---
EXAMINATION TYPE: CT abdomen pelvis w con DATE OF EXAM: 10/27/2019 COMPARISON: CT 04/24/2019 HISTORY: Abdominal pain, acute, diffuse CT DLP: 826.2 mGycm Automated exposure control for dose reduction was used. TECHNIQUE: Helical acquisition of images from the lung bases through the pelvis have been completed. CONTRAST: Performed without Oral Contrast and with IV Contrast, patient injected with 100 ml mL of Isovue 300. FINDINGS: Small hiatal hernia. LUNG BASES: No significant abnormality is appreciated. AORTA: No significant abnormality is appreciated. LIVER/GB: No significant abnormality is appreciated. PANCREAS: No significant abnormality is seen. SPLEEN: No significant abnormality is seen. ADRENALS: No significant abnormality is seen. KIDNEYS: Circumaortic left renal vein noted, there are bilateral parapelvic cysts as on prior exam. REPRODUCTIVE ORGANS: Not seen BOWEL: Fluid-filled loops of small bowel are present, questionable bowel wall thickening in the rect osigmoid region. There is extensive diverticular change. Appendix is normal. FREE AIR: No Free Air visible. ASCITES: None visible. PELVIC ADENOPATHY: None visualized. RETROPERITONEAL ADENOPATHY: No Retroperitoneal Adenopathy visible. URINARY BLADDER: No significant abnormality is seen. OSSEOUS STRUCTURES: No significant abnormality is seen. IMPRESSION: CORRELATE FOR ENTERITIS, COLITIS. DIVERTICULOSIS.
[2019-10-27 14:04] LABS: Basophils % (A) 0 %; Eosinophils # (A) 0.1 k/uL (0-0.7); Eosinophils % (A) 2 %; HCT 40.1 % (34.0-46.0); Lymphocytes # (A) 1.9 k/uL (1.0-4.8); Lymphocytes % (A) 24 %; MCH 29.6 pg (25.0-35.0); MCHC 32.4 g/dL (31.0-37.0); MCV 91.3 fL (80.0-100.0); Mean Platelet Volume 7.9; Monocytes # (A) 0.4 k/uL (0-1.0); Monocytes % (A) 5 %; Neutrophils # (A) 5.3 k/uL (1.3-7.7); Neutrophils % (A) 68 %; Platelet Count 312 k/uL (150-450); RDW 12.4 % (11.5-15.5); WBC 7.8 k/uL (3.8-10.6)
[2019-10-27 14:09] LABS: Partial Thromboplastin Time 22.7 sec (22.0-30.0)
[2019-10-27 14:30] VITALS: BP 118/76; PULSE 79; RESP 18; TEMP 97.6
== END 2019-10-27 14:30 | disposition home or self-care (01) ==
LOC: EC 10:43
DX: R10.13 Epigastric pain (principal); R10.10 Upper abdominal pain, unspecified; R11.0 Nausea; R10.817 Generalized abdominal tenderness; K52.9 Noninfective gastroenteritis and colitis, unspecified; K57.30 Diverticulosis of large intestine without perforation or abscess without bleeding; Z79.899 Other long term (current) drug therapy
CPT/HCPCS: 36415; 80053; 82150; 83605; 83690; 85025; 85610; 85730; 81001; 74177; 99284; 96374; 96375; J1885; C9113; Q9967

== ENCOUNTER → 2020-04-17 | Outpatient (CLI) | payer MEDICARE ==
--- NOTE | 2020-04-18 09:48 | MM ---
Reason for exam: screening (asymptomatic). Last mammogram was performed 1 year and 8 months ago. History: Patient is postmenopausal. Took hormonal contraceptives for 1 year. Physical Findings: A clinical breast exam by your physician is recommended on an annual basis and results should be correlated with mammographic findings. MG 3D Screening Mammo W/Cad Bilateral CC and MLO view(s) were taken. Prior study comparison: August 17, 2018, bilateral MG 3d screening mammo w/cad. July 30, 2017, bilateral MG 3d screening mammo w/cad. There are scattered fibroglandular densities. There is no discrete abnormality. No significant changes when compared with prior studies. ASSESSMENT: Negative, BI-RAD 1 RECOMMENDATION: Routine screening mammogram of both breasts in 1 year.
== END | disposition home or self-care (01) ==
LOC: RADMAMWWP 10:16
PROVIDERS: ATTEND Internal Medicine
DX: Z12.31 Encounter for screening mammogram for malignant neoplasm of breast (principal)
CPT/HCPCS: 77063; 77067

== ENCOUNTER 2020-12-29 08:55 | Emergency (ER) | payer MEDICARE ==
[2020-12-29 09:31] VITALS: BP 119/87; PULSE 88; RESP 18; TEMP 98.8
[2020-12-29] MEDS ORDERED: predniSONE 50 MG TAB PO STA (09:38)
[2020-12-29] MEDS ORDERED: KETOROLAC 15 MG/ML 1 ML VIAL IM STA (09:38)
--- NOTE | 2020-12-29 09:42 | ED ---
General Adult HPI - General Chief complaint: Back Pain/Injury Stated complaint: back & leg pain Time Seen by Provider: 12/29/20 09:25 Source: patient, RN notes reviewed, old records reviewed Mode of arrival: ambulatory - History of Present Illness Initial comments: This is a 65 her old female comes in complaining of lower back pain. Patient states is mostly on the left rating down the posterior aspect of her left leg to her knee. Patient states is a little discomfort on the right occasionally. Patient states movement and standing and walking make the pain considerably wo rse. Patient states lying still improves it but does not take away. Patient states she went to the urgent care and they did an x-ray and told nothing was wrong and sent her home with Motrin. Patient states the pain continues and is getting so severe she's been unable to sleep. Patient states took Motrin earlier in the morning as well as placing an [id number] patch on the area and smoked a joint of marijuana. Patient states the pain is still significant. Patient denies any recent trauma. Patient denies any similar pain in the past. Patient denies any recent fever chills or cough per patient denies any recent procedure. Patient states she's unable to get an MRI. - Related Data Home Medications Medication Instructions Recorded Confirmed DULoxetine HCL [Cymbalta] 60 mg PO DAILY 04/01/16 10/27/19 L.acidoph,Paracasei, B.lactis 1 tab PO DAILY 04/01/16 10/27/19 [Probiotic] Multivitamins, Thera [Multivitamin 1 tab PO DAILY 04/01/16 10/27/19 (formulary)] Folic Acid 0.4 mg PO DAILY 09/24/16 10/27/19 Turmeric Root Extract [Turmeric] 500 mg PO DAILY 09/24/16 10/27/19 Docusate [Colace] 100 mg PO DAILY 10/27/19 10/27/19 Polyethylene Glycol 3350 [Miralax] 17 gm PO DAILY 10/27/19 10/27/19 Sucralfate [Carafate] 1 gm PO TID 10/27/19 10/27/19 Previous Rx's Medication Instructions Recorded predniSONE [Deltasone] 40 mg PO DAILY #8 tab 12/29/20 Allergies Allergy/AdvReac Type Severity Reaction Status Date / Time No Known Allergies Allergy Verified 12/29/20 09:31 Review of Systems ROS Statement: Those systems with pertinent positive or pertinent negative responses have been documented in the HPI. ROS Other: All systems not noted in ROS Statement are negative. Past Medical History Past Medical History: Osteoarthritis (OA) Additional Past Medical History / Comment(s): RECTAL PROLAPSE, MIGRAINEs, cervicogenic headache, celiacs disease(gluten free diet), "ddd upper spine"oa spine.diverticulosis. History of Any Multi-Drug Resistant Organisms: None Reported Past Surgical History: Hysterectomy, Tubal Ligation Additional Past Surgical History / Comment(s): OCCIPITAL STIMULATOR IMPLANT, (BATTERY PACK IS IN LEFT POSTERIOR HIP) colonoscopy, ERIN CATARACT SX Past Anesthesia/Blood Transfusion Reactions: No Reported Reaction Past Psychological History: No Psychological Hx Reported Smoking Status: Never smoker Past Alcohol Use History: None Reported Past Drug Use History: Marijuana - Past Family History Mother Family Medical History: Deep Vein Thrombosis (DVT) Brother(s) Family Medical History: Cancer Sister(s) Family Medical History: Cancer General Exam - General Exam Comments Initial Comments: GENERAL: Patient is well-developed and well-nourished. Patient is nontoxic and well- hydrated and is in mild distress. ENT: Neck is soft and supple. No significant lymphadenopathy is noted. Oropharynx is clear. Moist mucous membranes. Neck has full range of motion without eliciting any pain. EYES: The sclera were anicteric and conjunctiva were pink and moist. Extraocular movements were intact and pupils were equal round and reactive to light. Eyelids were unremarkable. PULMONARY: Unlabored respirations. Good breath sounds bilaterally. No audible rales rhonchi or wheezing was noted. CARDIOVASCULAR: There is a regular rate and rhythm without any murmurs gallops or rubs. ABDOMEN: Soft and nontender with normal bowel sounds. SKIN: Skin is clear with no lesions or rashes and otherwise unremarkable. NEUROLOGIC: Patient is alert and oriented x3. Cranial nerves II through XII are grossly intact. Motor and sensory are also intact. Normal speech, volume and content. Symmetrical smile. Patient has positive straight leg test bilaterally at about 30 on the right and 10 on the left. Patient has normal perineum sensation MUSCULOSKELETAL: Normal extremities with adequate strength and full range of motion. LYMPHATICS: No significant lymphadenopathy is noted PSYCHIATRIC: Normal psychiatric evaluation Course Vital Signs 12/29/20 09:28 Temperature 98.8 F Pulse Rate 88 Respiratory 18 Rate Blood Pressure 119/87 O2 Sat by Pulse 98 Oximetry Medical Decision Making - Medical Decision Making Computed tomography scan shows multiple areas of foraminal encroachment and patient has spinal stenosis as well. Patient received steroids Toradol and lidocaine patch in the emergency department she stated she was feeling slightly better. Prior to discharge I did give the patient 0.5 of Dilaudid IM. Patient has an appointment already with her back surgeon Disposition Clinical Impression: Sciatica, Spinal stenosis Disposition: HOME SELF-CARE Condition: Good Instructions (If sedation given, give patient instructions): Sciatica (ED) Prescriptions: predniSONE [Deltasone] 40 mg PO DAILY #8 tab Is patient prescribed a controlled substance at d/c from ED?: No Referrals: Shayna Martinez MD [Primary Care Provider] - 1-2 days Time of Disposition: 10:52
[2020-12-29] MEDS ORDERED: LIDOCAINE 5% PATCH TOPICAL SCH (10:00)
--- NOTE | 2020-12-29 10:10 | CT ---
EXAMINATION TYPE: CT lumbar spine wo con DATE OF EXAM: 12/29/2020 10:01 AM COMPARISON: None HISTORY: low back pain x 3 weeks, no injury CT DLP: 718.7 mGycm Automated exposure control for dose reduction was used. Unenhanced CT of the lumbar spine was performed. Bone and soft tissue window settings are submitted as well as coronal and sagittal reconstructions. Parapelvic renal cysts are incidentally noted. Subcu taneous implantable stimulator device noted along the left flank. Catheter extends outside the field- of-view. L1-L2: Normal disc space height. No disc herniation protrusion or central stenosis. No facet joint arthropathy. No evidence for foraminal encroachment. L2-L3: Normal disc space height. No disc herniation protrusion or central stenosis. No facet joint arthropathy. No evidence for foraminal encroachment. L3-L4: Normal disc space height. No disc herniation protrusion or central stenosis. No facet joint arthropathy. No evidence for foraminal encroachment. Mild facet arthropathy. L4-L5: There is degenerative disc disease and there is a grade 1 anterolisthesis of L4 on L5 with sev ere facet arthropathy. Broad-based disc bulging and hypertrophic change of the facets and ligamentum flavum result in severe canal stenosis and bilateral foraminal encroachment L5-S1: Normal disc space height. No disc herniation protrusion or central stenosis. No facet joint arthropathy. No evidence for foraminal encroachment. Facet arthropathy noted with sclerosis of the p ars bilaterally suggestive of stress pars defects. No significant anterolisthesis. IMPRESSION: 1. Grade 1 anterolisthesis L4 on L5 appears degenerative secondary to severe facet arthropathy with f indings suggestive of severe canal bilateral foraminal bulging. 2. Sclerosis involving the pars interarticularis of L5 with facet arthropathy but no evidence of sign ificant anterolisthesis or foraminal encroachment. Follow-up MRI recommended.
[2020-12-29] MEDS ORDERED: HYDROmorphone 0.5 MG/0.5 ML SYRINGE IM STA (10:48)
[2020-12-29] MEDS ORDERED: ACET/COD 300 MG/30 MG STARTER PACK 6 TAB BTL PO STA (10:52)
== END 2020-12-29 11:04 | disposition home or self-care (01) ==
LOC: EC 08:55
DX: M54.42 Lumbago with sciatica, left side (principal); M48.00 Spinal stenosis, site unspecified; M79.605 Pain in left leg
CPT/HCPCS: 72131; 96372; 99284; J1885; J7512; J1170

== ENCOUNTER → 2021-05-08 | Outpatient (CLI) | payer MEDICARE ==
--- NOTE | 2021-05-10 12:23 | MM ---
Reason for exam: screening (asymptomatic). Last mammogram was performed 1 year and 1 month ago. History: Patient is postmenopausal. Took hormonal contraceptives for 1 year. Physical Findings: A clinical breast exam by your physician is recommended on an annual basis and results should be correlated with mammographic findings. MG 3D Screening Mammo W/Cad Bilateral CC and MLO view(s) were taken. Prior study comparison: April 17, 2020, bilateral MG 3d screening mammo w/cad. August 17, 2018, bilateral MG 3d screening mammo w/cad. The breast tissue is heterogeneously dense. This may lower the sensitivity of mammography. There is no discrete abnormality. No significant changes when compared with prior studies. ASSESSMENT: Negative, BI-RAD 1 RECOMMENDATION: Routine screening mammogram of both breasts in 1 year.
== END | disposition home or self-care (01) ==
LOC: RADMAMWWP 07:40
PROVIDERS: ATTEND Internal Medicine
DX: Z12.31 Encounter for screening mammogram for malignant neoplasm of breast (principal)
CPT/HCPCS: 77063; 77067

== ENCOUNTER 2022-03-11 07:59 | Day surgery (SDC) | payer MEDICARE ==
[2022-03-11] MEDS ORDERED: diazePAM 5 MG TAB PO PRN (08:33)
[2022-03-11 08:49] VITALS: TEMP 98.5
[2022-03-11] MEDS ORDERED: HYDROcodone/APAP 5-325MG 1 EACH TAB PO PRN (10:10)
[2022-03-11 12:09] VITALS: RESP 16
--- NOTE | 2022-03-11 12:10 | CT ---
EXAMINATION TYPE: CT myelogram cervical spine DATE OF EXAM: 03/11/2022 COMPARISON: CT 06/27/2017 HISTORY: 66-year-old female M54.2, cervicalgia, headaches. TECHNIQUE: Contiguous axial scanning of the cervical spine performed after intrathecal administration of contrast material. Please refer to cervical myelogram of the same day for further details. Whitehead l/sagittal reconstructions performed. CT DLP: 416.4 mGycm Automated exposure control for dose reduction was used. FINDINGS: Possible 1.5 cm nodule right lobe of the thyroid gland. Coronal image 31. No cranial cervical junction and midbody, predental space widening, or prevertebral soft tissue swell ing. As compared to 2018, interval ACDF at C5-C6. There is mild posterior disc bulge at C3-C4 and C7-T1 impressing on the ventral thecal sac. This abut s the cord at C3-C4 and minimally narrows the spinal canal. No pato canal compromise or significant spinal canal stenosis at any level. Alignment is maintained. Multilevel facet and uncovertebral joint arthropathy. At C2-C3, mild left neuroforaminal narrowing. At C3-C4, moderate bilateral neuroforaminal stenosis. At C4-C5, moderate right neural foraminal stenosis. At C5-C6, mild left neuroforaminal stenosis. At C6/C7, mild right neural foraminal narrowing. At C7-T1, advanced hypertrophic facet arthropathy on the right but no significant neuroforaminal narr owing. Suboccipital stimulator leads noted on both sides. IMPRESSION: 1. STATUS POST C5-C6 ACDF. MILD DEGENERATIVE DISC DISEASE WITH MILD POSTERIOR DISC BULGING AT C3-C4 A ND C7-T1. THIS IMPRESSES ON THE VENTRAL THECAL SAC BUT DOES NOT CONTRIBUTE TO ANY SIGNIFICANT SPINAL CANAL STENOSIS OR CORD COMPRESSION. 2. SCATTERED FACET AND UNCOVERTEBRAL JOINT ARTHROPATHY. FACET ARTHROPATHY IS PARTICULARLY SEVERE ON T HE RIGHT AT C7-T1. 3. THYROID ULTRASOUND TO EXCLUDE A 1.5 CM RIGHT THYROID NODULE.
--- NOTE | 2022-03-11 12:13 | FL ---
EXAMINATION TYPE: FL myelogram cervical DATE: 03/11/2022 CLINICAL HISTORY: 66-year-old female M54.2, cervicalgia, headache COMPLICATIONS: None SEDATION: Administered by radiology nursing. The patient and the patient's vital signs were monitored by quali fied independent radiology personnel. TECHNIQUE: The procedure and potential risks were explained to patient and an informed consent was obtained with teach back. Site and side was verified. A time out was performed. The patient was placed prone on the fluoroscopy table and the L3-L4 level was localized and the skin was marked and was prepped and draped in the usual sterile fashion. Lidocaine was used for local anesthesia. Utilizing fluoroscopic guidance a 5 inch 22-gauge spinal nee dle was placed through the skin and into the subarachnoid space. Clear CSF was visualized at the needle hub. Subsequent administration of 10 mL Isovue-M 300 contrast into the intrathecal space. The table was manipulated to allow for contrast to progress to the cervical spine. The patient is sen t to CT for CT myelogram. The estimated blood loss was minimal. The patient's condition was unchanged following the procedure. Fluoroscopy time: 1 minute Total images: 5 IMPRESSION: Successful myelogram injection at the level of the lumbar spine for subsequent CT cervical spine.
[2022-03-11 14:04] VITALS: BP 121/73; PULSE 85
== END 2022-03-11 13:55 | disposition home or self-care (01) ==
LOC: RADPROMAIN 07:59
PROVIDERS: ATTEND Neurological Surgery
DX: M54.2 Cervicalgia (principal)
CPT/HCPCS: 62302; 72126; J2001; Q9967